=== PATIENT | female | born 1975 | race African-American/Black ===

== ENCOUNTER 2017-10-25 14:31 | Inpatient (IN) | payer SELFPAY ==
[2017-10-25 15:01] LABS: Hematocrit 23.1 % (36.0-47.0); Mean Platelet Volume 8.9 fL (7.4-10.4); Red Blood Cell (RBC) Count 3.42 mill/uL (4.20-5.40)
[2017-10-25 15:18] LABS: ALT (SGPT) 10 U/L (8-55); AST (SGOT) 15 U/L (5-34); Alkaline Phosphatase 68 U/L (40-150); Anion Gap 12 mmol/L (10-20); BUN (Urea Nitrogen) 10 mg/dL (7.0-18.7); Bilirubin, Total 0.2 mg/dL (0.2-1.2); CK (CPK) 139 U/L (29-168); Calc. Creatinine Clearance 0 mL/min (70-130); Calcium 9.1 mg/dL (7.8-10.44); Carbon Dioxide 23 mmol/L (22-29); Chloride 107 mmol/L (98-107); Estimated GFR-MDRD 88; Globulin 3.5 g/dL (2.4-3.5); Protein, Total 7.7 g/dL (6.0-8.3)
[2017-10-25 15:21] LABS: #Basophils 0.1 thou/uL (0.0-0.2); #Eosinphils 0.3 thou/uL (0.0-0.7); #Lymphocytes 1.1 thou/uL (1.20-3.40); #Monocytes 0.3 thou/uL (0.11-0.59); #Neutrophils 3.3 thou/uL (1.40-6.50); %Basophils 1.3 % (0.0-1.0); %Eosinophils 6.4 % (0.0-10.0); %Lymphocytes 21.7 % (21.0-51.0); %Monocytes 5.3 % (0.0-10.0); Anisocytosis SLIGHT = 6-15 cells (100X) (0-5/hpf); Hypochromia SLIGHT = 6-15 cells (100X) (0-5/hpf); Microcytosis SLIGHT = 6-15 cells (100X) (0-5/hpf)
[2017-10-25 15:23] LABS: Troponin I 0.035 ng/mL (< 0.028)
--- NOTE | 2017-10-25 15:44 | RAD ---
PORTABLE AP CHEST XRAY: DATE: 10/25/17. HISTORY: Syncopal episode. History of fainting due to iron deficiency. COMPARISON: 05/20/17. FINDINGS: Cardiac silhouette and pulmonary vasculature are within normal limits. The lungs remain clear. Ther e has been no interval change from prior study. IMPRESSION: No acute cardiopulmonary process. POS: [facility]
--- NOTE | 2017-10-25 17:47 | RAD ---
RIGHT HAND THREE VIEWS: 10/25/17 HISTORY: Right hand injury. FINDINGS: Overlying IV tubing obscures detail. Mild scattered osteophytosis is apparent. Joint spaces are prese rved. No acute fracture or dislocation are visible. IMPRESSION: Mild osteoarthritic changes of the right hand. POS: [facility]
--- NOTE | 2017-10-25 17:49 | RAD ---
FOUR VIEWS RIGHT KNEE 10/25/17 HISTORY: Injury after a fall. COMPARISON: 04/25/17 FINDINGS: Again noted is tricompartment osteophytosis. There may be minimal joint space narrowing involving the medial joint compartment. There is no evidence of a fracture or dislocation. Significant joint effus ion has resolved. There has been no other interval change from the prior exam. IMPRESSION: Osteoarthritis without evidence of an acute osseous abnormality involving the right knee. POS: [facility]
[2017-10-25] MEDS ORDERED: Ondansetron HCl/PF 4 MG/2 ML Vial IVP PRN (17:54)
[2017-10-25] MEDS ORDERED: Calcium Carbonate 500 MG ChewTAB PO PRN (17:54)
[2017-10-25] MEDS ORDERED: Acetaminophen 325 MG TAB PO PRN (17:54)
[2017-10-25] MEDS ORDERED: Bisacodyl 5 MG TAB PO PRN (17:54)
[2017-10-25] MEDS ORDERED: Mag-Al 1200 mg/1200 mg/30 ML UDCUP PO PRN (17:54)
[2017-10-25] MEDS ORDERED: Senokot 8.6 MG TAB PO PRN (17:54)
[2017-10-25 18:55] VITALS: BMI 37.8
[2017-10-25 19:18] LABS: Troponin I 0.036 ng/mL (< 0.028)
[2017-10-25 21:26] LABS: Troponin I 0.026 ng/mL (< 0.028)
--- NOTE | 2017-10-25 22:44 | HP ---
CHIEF COMPLAINT: Syncopal episode. HISTORY OF PRESENT ILLNESS: This is a 42-year-old female with a past medical history significant for hypertension as well as iron deficiency anemia who presents to the hospital due to syncopal episode that occurred early at home. The patient states that over the past couple of days she has noted that she is becoming worse and she has become more short of breath than she normally is. She was on her way going to the bathroom when she became dizzy and had a syncopal spell. No seizure activity was se en at the time. Syncopal episode had resolved after a couple of minutes and she was back to her base line. She did not complain of any other precipitating events or any pulse or any symptoms after the syncopal episode. She denies any chest pain, cough, fevers, chills, or palpitations. Of note, the p atient states that she has had a history of iron deficiency anemia in the past. She states that she is currently on her cycle and she states that her cycles are usually heavy in nature. PAST MEDICAL HISTORY: See HPI. PAST SURGICAL HISTORY: Includes tubal ligation as well as jaw surgery. FAMILY HISTORY: Significant for diabetes, hypertension, stroke, as well as coronary artery disease. SOCIAL HISTORY: Patient states that she is a former smoker, drinks occasionally and denies any recre ational drug use. REVIEW OF SYSTEMS: A 14-point review of systems was reviewed and was negative other than what was me ntioned in the HPI. PHYSICAL EXAMINATION: VITAL SIGNS: Blood pressure was 134/80, pulse was 67, respiratory rate was 16, temperature 98.8. Pa deriknt was satting 99% oxygen on room air. GENERAL: Patient was in no apparent distress, resting comfortably in the bed, alert, awake, oriented x3. HEENT: Head: Normocephalic, atraumatic. Eyes: Pupils are round and reactive to light. Extraocula r muscles were intact. Conjunctivae was pink. Sclerae was nonicteric. Mouth: Oral mucosa is pink and moist. No erythematous was noted. NECK: Soft, supple. No JVD, carotid bruits or lymphadenopathy. CARDIOVASCULAR: Regular rate and rhythm. S1, S2 sounds were heard. No S3, no S4, or murmurs. RESPIRATORY: Clear to auscultation bilaterally. No added sounds. ABDOMEN: Bowel sounds, soft, nontender, nondistended. EXTREMITIES: Pulses were 2+ both dorsalis and radial pulse. No pitting edema could be appreciated. LABORATORY DATA: White blood cell count was 5.0, hemoglobin 7.1, hematocrit was 23.1, MCV is 67.7. Sodium was 139, potassium 3.3, chloride is 107, bicarbonate is 23, BUN was 10, creatinine was 0.85. Troponin was 0.035. EKG did not show any acute abnormalities or ST changes and x-ray which was done after a fall, did not show any acute fractures or any acute abnormalities. ASSESSMENT AND PLAN: 1. Syncopal episode, likely secondary to symptomatic anemia, secondary to iron deficient anemia, sec ondary to heavy menstrual bleeding. Patient is currently hemodynamically stable. She has been typed and crossed and will receive 1 unit transfusion. We will start the patient on iron supplement table ts. We will educate the patient on importance of taking her tablets at home. She will follow up out patient with her [facility] doctor for any further interventions. We will check H&H in the a.m. 2. Mildly elevated troponin secondary to most likely demand ischemia from symptomatic anemia. No fu rther troponins are negative at this time, she is asymptomatic and without any cardiovascular symptom s at this time. So, we will just monitor for the time being. 3. Hypertension. We will resume home medication at the medicine reconciliation.
[2017-10-26 06:17] LABS: #Basophils 0.1 thou/uL (0.0-0.2); #Eosinphils 0.6 thou/uL (0.0-0.7); #Lymphocytes 1.3 thou/uL (1.20-3.40); #Monocytes 0.4 thou/uL (0.11-0.59); #Neutrophils 4.6 thou/uL (1.40-6.50); %Basophils 1.1 % (0.0-1.0); %Eosinophils 8.4 % (0.0-10.0); %Lymphocytes 18.4 % (21.0-51.0); %Monocytes 5.6 % (0.0-10.0); Hematocrit 23.9 % (36.0-47.0)
[2017-10-26 06:27] LABS: Anion Gap 9 mmol/L (10-20); BUN (Urea Nitrogen) 10 mg/dL (7.0-18.7); Calc. Creatinine Clearance 145 mL/min (70-130); Calcium 8.7 mg/dL (7.8-10.44); Carbon Dioxide 24 mmol/L (22-29); Chloride 110 mmol/L (98-107); Estimated GFR-MDRD Greater than 90
--- NOTE | 2017-10-26 11:08 | PDOC.PN ---
- Subjective Encounter Start Date: 10/26/17 Encounter Start Time: 07:20 Pt seen for followup re: syncope. Denies chest pain, shortness of breath, fevers or chills. No nausea or vomiting. Hilliard lightheaded earlier when she went up to go to washroom. - Objective MAR Reviewed: Yes Vital Signs & Weight: Vital Signs (12 hours) Temp Pulse Resp BP Pulse Ox 10/26/17 08:05 98.2 F 64 20 146/97 H 100 10/26/17 04:00 97.9 F 62 16 140/83 97 Weight Weight 220 lb I&O: 10/25/17 10/26/17 10/27/17 06:59 06:59 06:59 Intake Total 590 Balance 590 Result Diagrams: 10/26/17 05:38 10/26/17 05:38 EKG Reviewed by me: Yes (Tele: NSR) Phys Exam - Physical Examination Constitutional: NAD HEENT: PERRLA, moist MMs, sclera anicteric, oral pharynx no lesions Neck: supple Respiratory: no wheezing, no rales, no rhonchi, clear to auscultation bilateral Cardiovascular: RRR, no rub Gastrointestinal: soft, non-tender, no distention, positive bowel sounds Musculoskeletal: pulses present Neurological: non-focal, moves all 4 limbs Lymphatic: no nodes Psychiatric: normal affect, A&O x 3 Skin: no rash, normal turgor, cap refill <2 seconds Dx/Plan (1) Syncope Code(s): R55 - SYNCOPE AND COLLAPSE Status: Acute (2) Anemia, posthemorrhagic, acute Code(s): D62 - ACUTE POSTHEMORRHAGIC ANEMIA Status: Acute (3) HTN (hypertension) Code(s): I10 - ESSENTIAL (PRIMARY) HYPERTENSION Status: Chronic (4) Elevated troponin Code(s): R74.8 - ABNORMAL LEVELS OF OTHER SERUM ENZYMES Status: Resolved - Plan out of bed/ambulate, DVT proph w/SCDs * . Check 2D echo r/o cardiac causes of syncope. No chest pain, troponin trended to normal. Check d-dimer to r/o PE. Transfuse 1 unit pRBC (Hb only slightly improved, pt continues to be symptomatic ). Monitor vital signs, titrate antihypertensives as needed. Pt to followup with ObGyn as outpt. Review of Systems - Review of Systems Constitutional: negative: Fever, Chills, Sweats, Weakness, Malaise Respiratory: negative: Cough, Dry, Shortness of Breath, Hemoptysis, SOB with Excertion, Pleuritic Pain, Sputum, Wheezing Cardiovascular: negative: Chest Pain, Palpitations, Orthopnea, Paroxysmal Noc. Dyspnea, Edema, Light Headedness Gastrointestinal: negative: Nausea, Vomiting, Abdominal Pain, Diarrhea, Constipation, Melena, Hematochezia Genitourinary: negative: Dysuria, Frequency, Incontinence, Hematuria, Retention - Medications/Allergies Allergies/Adverse Reactions: Allergies Allergy/AdvReac Type Severity Reaction Status Date / Time No Known Allergies Allergy Verified 05/21/17 01:58 Medications: Current Medications Acetaminophen (Tylenol) 650 mg PO Q4H PRN PRN Reason: Headache/Fever or Pain Al Hydroxide/Mg Hydroxide (Maalox) 30 ml PO Q6H PRN PRN Reason: Heartburn or Indigestion Bisacodyl (Dulcolax) 10 mg PO DAILYPRN PRN PRN Reason: Constipation Calcium Carbonate (Tums) 1,000 mg PO Q4H PRN PRN Reason: Heartburn or Indigestion Ferrous Sulfate (Ferrous Sulfulte) 300 mg PO DAILY [facility] Last Admin: 10/26/17 08:47 Dose: 300 mg Ondansetron HCl (Zofran) 4 mg IVP Q6H PRN PRN Reason: Nausea/Vomiting Senna (Senokot) 2 tab PO HSPRN PRN PRN Reason: Constipation
[2017-10-27 05:39] LABS: Anion Gap 9 mmol/L (10-20); BUN (Urea Nitrogen) 13 mg/dL (7.0-18.7); Calc. Creatinine Clearance 132 mL/min (70-130); Calcium 9.1 mg/dL (7.8-10.44); Carbon Dioxide 26 mmol/L (22-29); Chloride 107 mmol/L (98-107); Estimated GFR-MDRD 87
[2017-10-27 05:44] LABS: #Basophils 0.1 thou/uL (0.0-0.2); #Eosinphils 0.7 thou/uL (0.0-0.7); #Lymphocytes 1.5 thou/uL (1.20-3.40); #Monocytes 0.4 thou/uL (0.11-0.59); #Neutrophils 4.6 thou/uL (1.40-6.50); %Eosinophils 9.3 % (0.0-10.0); %Lymphocytes 20.2 % (21.0-51.0); %Monocytes 5.6 % (0.0-10.0); Hematocrit 28.6 % (36.0-47.0); Mean Platelet Volume 8.2 fL (7.4-10.4); White Blood Cell (WBC) Count 7.2 thou/uL (4.8-10.8)
[2017-10-27] MEDS ORDERED: Iopamidol 370 76% 100 ML VIAL ONE (07:42)
[2017-10-27 11:40] VITALS: BP 132/73; TEMP 98.8
--- NOTE | 2017-10-27 15:12 | DIS ---
PRIMARY CARE PHYSICIAN: Criss Mendez M.D. DATE OF ADMISSION: 10/25/2017 DATE OF DISCHARGE: 10/27/2017 DISCHARGE DIAGNOSES: 1. Acute blood loss anemia. 2. Heavy menstrual bleeding. 3. Syncope. CONDITION OF PATIENT AT THE TIME OF DISCHARGE: Stable. I assessed Ms. Porras on the day of dischar . She denies any chest pain or shortness of breath. Vital signs are stable. S1 and S2 are heard, regular. Lungs are clear to auscultation bilaterally. DISCHARGE MEDICATIONS: No changes were made to her home medications, which consist of Tylenol No. 3 p.r.n., ProAir HFA p.r.n., ferrous sulfate 325 mg 2 times a day, hydrochlorothiazide 25 mg daily, ibu profen 800 mg 3 times a day, iron fumarate and polysaccharide 1 capsule daily, and lisinopril 20 mg d aily. HOSPITAL COURSE: Ms. Knight is a pleasant 42-year-old lady, who was admitted to [facility] for a syncopal episode, which occurred in the context of heavy menstrual bleeding. Lucia nguyen was also found to be anemic, with a hemoglobin of 7.1. She did not have any recurrence of syncopes . There were no arrhythmias on telemetry. She received 2 units of packed blood cells, with improvement of her hemoglobin to 8.9 on the day of discharge. Lucia nguyen had a 2D echocardiogram, which showed left ventricular ejection fraction of 60% to 65%, grade 2/3 d iastolic dysfunction, mildly dilated left atrium, mild mitral regurgitation, mild tricuspid regurgita tion, and mild pulmonic regurgitation. She also had a CT angiogram of the chest. Preliminary report indicates that there was no pulmonary embolism. She is advised to follow up with her primary care simeon barbour for final report of the CT angiogram of chest. Many thanks for allowing me to participate in your patient's care. Please feel free to contact me wi th any questions or concerns. DISCHARGE DESTINATION: Home. TOTAL AMOUNT OF TIME SPENT COORDINATING THIS DISCHARGE: 32 minutes.
--- NOTE | 2017-10-27 17:57 | CT ---
CT ARTERIOGRAM CHEST WITH IV CONTRAST AND 3D MIP IMAGING: History: Chest pain. Dyspnea. Comparison: 07-01-15 FINDINGS: There is good contrast opacification of the pulmonary arteries and thoracic aorta with bovine origin of the great vessels from the aortic arch. No pleural fluid, pneumothorax, or mediastinal adenopathy are apparent. IMPRESSION: No CT evidence of pulmonary embolus. POS: [facility]
== END 2017-10-27 15:55 | disposition home or self-care (01) | DRG 812 ==
LOC: ERS 14:31 → 2NO 18:01
PROVIDERS: ADMIT Family Medicine; ATTEND Family Medicine
PROC: 30233N1 Transfusion of Nonautologous Red Blood Cells into Peripheral Vein, Percutaneous Approach (ICD-10-PCS; principal; 2017-10-25)
DX: D62 Acute posthemorrhagic anemia (principal); I24.8 Other forms of acute ischemic heart disease; I10 Essential (primary) hypertension; N92.0 Excessive and frequent menstruation with regular cycle; E11.9 Type 2 diabetes mellitus without complications; Z87.891 Personal history of nicotine dependence; Z82.3 Family history of stroke; Z82.49 Family history of ischemic heart disease and other diseases of the circulatory system; Z83.3 Family history of diabetes mellitus
CPT/HCPCS: 36415; 36430; 71010; 71275; 80048; 80053; 82553; 83735; 83880; 84484; 84703; 85025; 85379; 86850; 86900; 86901; 93005; 93306; 94760; 96360; P9016

== ENCOUNTER 2017-11-12 12:11 | Outpatient (CLI) | payer OTHER | END 2017-11-12 12:12 | disposition home or self-care (01) | LOC: BICRAD 12:11 | PROVIDERS: ATTEND Internal Medicine | DX: Z02.71 Encounter for disability determination (principal); M65.262 Calcific tendinitis, left lower leg | CPT/HCPCS: 71020 ==

== ENCOUNTER 2018-08-04 21:08 | Emergency (ER) | payer MEDICAID, SELFPAY ==
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
[2018-08-04] MEDS ORDERED: HYDROcodone/Acetaminophen 10/325 mg Tablet ONE (22:59)
== END 2018-08-04 23:09 | disposition home or self-care (01) ==
LOC: ERS 21:08
DX: S16.1XXA Strain of muscle, fascia and tendon at neck level, initial encounter (principal); S20.219A Contusion of unspecified front wall of thorax, initial encounter; I10 Essential (primary) hypertension; J45.909 Unspecified asthma, uncomplicated; I11.0 Hypertensive heart disease with heart failure; I50.9 Heart failure, unspecified; J44.9 Chronic obstructive pulmonary disease, unspecified; F32.9 Major depressive disorder, single episode, unspecified; Z87.891 Personal history of nicotine dependence; Z79.899 Other long term (current) drug therapy; V49.9XXA Car occupant (driver) (passenger) injured in unspecified traffic accident, initial encounter
CPT/HCPCS: 72125

== ENCOUNTER 2018-12-29 19:00 | Emergency (ER) | payer SELFPAY ==
[~2018-12-29 19:00] MED LIST: ISOVUE-370 76%-LOCM 1 ML ONE
[2018-12-29 20:11] LABS: #Basophils 0.1 thou/uL (0.0-0.2); #Eosinphils 0.5 thou/uL (0.0-0.7); #Lymphocytes 1.1 thou/uL (1.20-3.40); #Monocytes 0.4 thou/uL (0.11-0.59); #Neutrophils 3.9 thou/uL (1.40-6.50); %Basophils 1.3 % (0.0-1.0); %Eosinophils 8.9 % (0.0-10.0); %Lymphocytes 19.1 % (21.0-51.0); %Monocytes 6.1 % (0.0-10.0); %Neutrophils 64.6 % (42.0-75.0); Hemoglobin 10.5 g/dL (12.0-16.0); Mean Corpuscular HGB CONC 32.2 g/dL (32.0-36.0); Mean Corpuscular Hemoglobin 26.9 pg (27.0-31.0); Mean Corpuscular Volume 83.6 fL (78.0-98.0); Mean Platelet Volume 9.1 fL (7.4-10.4); Platelet Count 267 thou/uL (130-400); RBC Distribution Width 14.5 % (11.5-14.5); Red Blood Cell (RBC) Count 3.88 mill/uL (4.20-5.40)
[2018-12-29 20:32] LABS: ALT (SGPT) 17 U/L (8-55); AST (SGOT) 26 U/L (5-34); Albumin 4.8 g/dL (3.5-5.0); Alkaline Phosphatase 67 U/L (40-150); Anion Gap 11 mmol/L (10-20); BUN (Urea Nitrogen) 11 mg/dL (7.0-18.7); Bilirubin, Total 0.2 mg/dL (0.2-1.2); Calc. Creatinine Clearance 0 mL/min (70-130); Calcium 10.1 mg/dL (7.8-10.44); Carbon Dioxide 27 mmol/L (22-29); Chloride 103 mmol/L (98-107); Estimated GFR-MDRD 64; Globulin 3.7 g/dL (2.4-3.5); Glucose 91 mg/dL (70-105); Potassium 3.3 mmol/L (3.5-5.1); Protein, Total 8.5 g/dL (6.0-8.3); Sodium 138 mmol/L (136-145)
--- NOTE | 2018-12-29 20:42 | RAD ---
FRONTAL VIEW CHEST: Date: 12/29/18 COMPARISON: 10/25/17. INDICATION: Shortness of breath. FINDINGS: There is no evidence of consolidation, effusion, or discrete pneumothorax. Cardiac silhouette is acce ntuated by portable technique. IMPRESSION: Stable chest. POS: [facility]
[2018-12-29] MEDS ORDERED: Ondansetron PF 4 MG/2 ML Vial ONE (20:43)
--- NOTE | 2018-12-29 21:26 | CT ---
POSTCONTRAST SOFT TISSUE NECK CT 12/29/18 HISTORY: Foreign body sensation, difficulty breathing. Patient feels like her throat is going to close up. COMPARISON: None. FINDINGS: The visualized brain parenchyma is unremarkable. There is mucosal disease involving the ethmoid air c ells and right frontal sinus. Additionally, there is mild mucosal disease of the maxillary sinuses. A dequate mastoid air cell aeration. Bilateral ocular lenses are appropriately located. Both globes are intact. Retrobulbar fat is preserv ed. Symmetric attenuation of the optic nerves and ocular rectus muscles. Limited evaluation of the or al cavity due to dental amalgam artifact. Midline fatty raphae of the tongue is preserved. No obvious masses in the nasopharynx. Epiglottis has a normal caliber. Pre-epiglottic fat is preserved. There i s mild fullness at the tongue base likely due to mild lingual tonsil hypertrophy. No obvious masses. there is mild obscuration of the left aspect of the vallecula. Mild effacement of the left piriform s inus. Directed visualization is recommended. The supraglottic, glottic and subglottic larynx are unre markable. Symmetric attenuation of sternocleidomastoid muscles. Symmetric attenuation of the parotid and submandibular glands. Unremarkable. thyroid gland. No evidence of lymphadenopathy by size criteria. The great vessels of the neck are grossly patent. Straightening of the normal cervical lordosis. Cervical spine vertebral body height is maintained. Th ere is no fracture. Varying degrees of central canal stenosis and foraminal narrowing on the basis of degenerative change. Upper mediastinum and lung apices are unremarkable. IMPRESSION: 1. No obvious radiopaque foreign body in the aerodigestive tract. 2. Mild fullness of the tongue base, left aspect of the vallecula and left piriform sinus. Findi ngs may be due to minimal lymphoid hyperplasia and benign apposition of mucosa. However, given patien t's history, direct visualization is recommended. POS: [facility]
[2018-12-29] MEDS ORDERED: Dexamethasone 4 mg/ml Vial ONE (22:10)
--- NOTE | 2018-12-30 03:28 | CON ---
DATE OF CONSULTATION: 12/29/2018 CHIEF COMPLAINT: I am seeing Ms. Porras in consultation at the request of Dr. Wood in the emergency department for the evaluation and treatment of airway swelling. HISTORY OF PRESENT ILLNESS: The patient is a 43-year-old woman who presented to the emergency department after feeling a sensation of airway closing and swelling. She never had any distress or loss of consciousness. This occurred right after she had eaten a meal. She was brought to the emergency department where subsequently after evaluation had a CT scan of the neck which showed some soft tissue swelling that was concerning for airway obstruction and was recommended the patient to have an endoscopic evaluation to evaluate the airway. The patient is not complaining of any acute distress, but does feel like there is an irritation in her throat and a little bit of tightness. She never had a similar problem previously. She is unaware of any history of significant reflux. She does complain of a little bit of hoarseness. She also complains of frequent sinus infections and nasal congestion. She does not take medications regularly for her reflux but she does take medicine for blood pressure that includes an ANYI inhibitor. PAST MEDICAL HISTORY: Hypertension and obesity. SOCIAL HISTORY: She does have remote history of smoking. HABITS: Currently, tobacco free. REVIEW OF SYSTEMS: The patient has no recent fever or chills. Again, she does have some nasal congestion and postnasal drainage, but not epistaxis. She denies vision changes. She denies ear pain or otorrhea or vertigo, although she does get lightheaded at times. She denies any chest pain or palpitations. She denies any chronic productive cough or shortness of breath. She denies extremity edema or claudication. She denies any vomiting or diarrhea. She does have occasional reflux but no significant problems. She denies any problems with easy bruising or bleeding. She denies any history of immunocompromise. PHYSICAL EXAMINATION: GENERAL: The patient is resting comfortably in the emergency department. In general, the patient is in no acute distress and in good spirits and interactive appropriately. VITAL SIGNS: Her O2 sats on room air are 98%. Her pulse was 92. HEENT: Head is normocephalic. The parotid and submandibular glands are smooth. There is normal facial tone. External ears and nose show no scars and no masses. Ear canals are clear. Drums are within normal limits with well-aerated middle ear spaces and she has a good hearing to finger rub bilaterally. Rhinoscopy showed the septum is deviated to the right. On flexible endoscopy, she is noted to have some purulent secretions emanating from the middle meatus on the left side. There are no polyps noted on either sides. Nasopharynx shows that posterior choana clear. The fossa of Rosenmuller and torus tubarius are clear. The mucosa is otherwise unremarkable. Oral cavity, lips, teeth, and gums were in good repair. There is no trismus. Mucosa is pink and moist throughout. Floor of mouth, oral tongue, buccal mucosa are all normal. Hard and soft palate are normal. Posterior oropharynx reveals pink, moist mucosa without exudates or mass. The airway is widely patent. The hypopharynx and larynx were examined with flexible endoscope. The hypopharynx shows clean pharyngeal gutters. The vallecula does have a little bit of full lingual tonsil but nothing of significant abnormalities. The vallecula is clear. The pyriform sinuses are completely clear. The larynx shows that the epiglottis, false cords, and true cords are all normal. The vocal cords are mobile and meet in midline. She does have a little bit of pachydermia laryngis. Subglottic space is completely clear. NECK: No mass or thyromegaly. Trachea is midline. LYMPHATIC: No cervical lymphadenopathy. LUNGS: Clear to auscultation bilaterally. HEART: Regular rate and rhythm. DIAGNOSTIC STUDIES: Data reviewed the CT scan of the soft tissues in the neck. I do not really appreciate any significant edema or swelling. The airway does appear to be patent. I see no fluid collections or masses. IMPRESSION: 1. Laryngeal irritation, may be a little laryngospasm. I think it is probably related to reflux episode. 2. Left maxillary sinusitis. 3. Deviated septum. PLAN: I recommended that the patient will be treated with proton-pump inhibitor and antibiotic coverage for the reflux and the sinus infection, and she should follow up with primary care provider to review this at some point in the near future. I feel that her airway is stable and without compromise and assuming other issues are not a concern, she is free to be discharged to home as far as my evaluation. Job ID: [id number]
== END 2018-12-29 22:20 | disposition home or self-care (01) ==
LOC: ERS 19:00
DX: J32.9 Chronic sinusitis, unspecified (principal); I10 Essential (primary) hypertension; J44.9 Chronic obstructive pulmonary disease, unspecified; Z87.891 Personal history of nicotine dependence; Z79.899 Other long term (current) drug therapy
CPT/HCPCS: 36415; 70491; 71045; 80053; 83880; 84484; 85025; 85379; 93005; 96374; J1100; J2405; Q9966

== ENCOUNTER 2019-04-19 15:09 | Emergency (ER) | payer SELFPAY ==
[2019-04-19] MEDS ORDERED: Ketorolac Tromethamine 60 MG/2 ML VIAL ONE (15:35)
== END 2019-04-19 16:46 | disposition home or self-care (01) ==
LOC: ERS 15:09
DX: M79.604 Pain in right leg (principal); M79.605 Pain in left leg; D50.9 Iron deficiency anemia, unspecified; I11.0 Hypertensive heart disease with heart failure; I50.9 Heart failure, unspecified; J44.9 Chronic obstructive pulmonary disease, unspecified; F32.9 Major depressive disorder, single episode, unspecified; F17.210 Nicotine dependence, cigarettes, uncomplicated; Z79.899 Other long term (current) drug therapy
CPT/HCPCS: 96372; J1885

== ENCOUNTER 2019-05-17 23:23 | Emergency (ER) | payer SELFPAY ==
--- NOTE | 2019-05-18 00:13 | RAD ---
XR Knee Rt 4 View STANDARD HISTORY: Knee pain COMPARISON: 04/25/2017 study. FINDINGS: There are moderate tricompartment arthritic changes of the knee. No fracture or joint effus ion. Benign-appearing periosteal change is again noted along the tibia. IMPRESSION: Moderate arthritic changes of the knee. No acute process.
== END 2019-05-18 00:42 | disposition home or self-care (01) ==
LOC: ERS 23:23
DX: M25.561 Pain in right knee (principal); D50.9 Iron deficiency anemia, unspecified; I11.0 Hypertensive heart disease with heart failure; I50.9 Heart failure, unspecified; J44.9 Chronic obstructive pulmonary disease, unspecified; F32.9 Major depressive disorder, single episode, unspecified; F17.210 Nicotine dependence, cigarettes, uncomplicated; Z79.899 Other long term (current) drug therapy

== ENCOUNTER 2019-06-18 13:16 | Emergency (ER) | payer OTHER, SELFPAY ==
[2019-06-18] MEDS ORDERED: Ketorolac Tromethamine 30 MG/ML VIAL ONE (14:00)
--- NOTE | 2019-06-18 14:52 | RAD ---
XR Knee Rt 4 View STANDARD HISTORY: Knee pain. Injured knee approximately 3 weeks ago. COMPARISON: None. FINDINGS: There are moderate arthritic changes of the knee degenerative spurring of the medial and to a lesser extent the lateral compartment and prominent patellofemoral spur formation. No joint effusion or fracture. IMPRESSION: Moderate osteoarthritic changes of the knee.
== END 2019-06-18 15:24 | disposition home or self-care (01) ==
LOC: ERS 13:16
DX: M17.11 Unilateral primary osteoarthritis, right knee (principal); I11.0 Hypertensive heart disease with heart failure; I50.9 Heart failure, unspecified; D50.9 Iron deficiency anemia, unspecified; J44.9 Chronic obstructive pulmonary disease, unspecified; F32.9 Major depressive disorder, single episode, unspecified; F17.210 Nicotine dependence, cigarettes, uncomplicated
CPT/HCPCS: 96372; J1885

== ENCOUNTER 2019-11-10 01:05 | Emergency (ER) | payer OTHER ==
[2019-11-10] MEDS ORDERED: Diazepam 5 MG TAB ONE (01:19)
== END 2019-11-10 01:27 | disposition home or self-care (01) ==
LOC: ERS 01:05
DX: M62.838 Other muscle spasm (principal); I11.0 Hypertensive heart disease with heart failure; I50.9 Heart failure, unspecified; J44.9 Chronic obstructive pulmonary disease, unspecified; F32.9 Major depressive disorder, single episode, unspecified; F17.210 Nicotine dependence, cigarettes, uncomplicated
CPT/HCPCS: 99283

== ENCOUNTER 2020-01-22 10:29 | Observation (INO) | payer OTHER, SELFPAY ==
[2020-01-22] MEDS ORDERED: Metoclopramide HCl 10 MG/2 ML VIAL ONE (11:01)
[2020-01-22] MEDS ORDERED: diphenhydrAMINE 50 MG/ML VIAL ONE (11:01)
[2020-01-22] MEDS ORDERED: Ketorolac Tromethamine 30 MG/ML VIAL ONE (11:01)
--- NOTE | 2020-01-22 11:39 | RAD ---
EXAM: Chest one view: HISTORY: Headaches body aches leg cramps dizziness COMPARISON: 12/29/2018 FINDINGS: Heart size: Within normal limits. Lungs: Clear of acute process. No evidence for confluent pneumonia, pleural effusion, acute edema, or pneumothorax, or other signifi cant acute process. IMPRESSION: No significant acute intrathoracic disease.
[2020-01-22 11:45] LABS: INR-International Normal Ratio 1.1; PTT 30.5 SEC (22.9-36.1); Prothrombin Time 13.7 SEC (12.0-14.7)
[2020-01-22 11:57] LABS: ALT (SGPT) 23 U/L (8-55); AST (SGOT) 29 U/L (5-34); Albumin 4.2 g/dL (3.5-5.0); Alkaline Phosphatase 77 U/L (40-110); Anion Gap 14 mmol/L (10-20); BUN (Urea Nitrogen) 11 mg/dL (7.0-18.7); Bilirubin, Total 0.2 mg/dL (0.2-1.2); Calc. Creatinine Clearance 0 mL/min (70-130); Calcium 8.6 mg/dL (7.8-10.44); Carbon Dioxide 23 mmol/L (22-29); Chloride 108 mmol/L (98-107); Estimated GFR-MDRD Greater than 90; Globulin 3.3 g/dL (2.4-3.5); Glucose 83 mg/dL (70-105); Potassium 4.5 mmol/L (3.5-5.1); Protein, Total 7.5 g/dL (6.0-8.3); Sodium 140 mmol/L (136-145)
[2020-01-22 12:00] LABS: Eosinophils 10 % (0-10); Hemoglobin 6.9 g/dL (12.0-16.0); Hypochromia MODERATE=16-30 cells (100X) (0-5/hpf); Large Platelets SLIGHT; Lymphocytes 22 % (21-51); MDiff Complete? YES; Mean Corpuscular HGB CONC 29.8 g/dL (32.0-36.0); Mean Corpuscular Hemoglobin 18.5 pg (27.0-31.0); Mean Corpuscular Volume 62.1 fL (78.0-98.0); Mean Platelet Volume 8.4 fL (7.4-10.4); Microcytosis MODERATE=15-30 cells (100X) (0-5/hpf); Monocytes 6 % (0-10); Neutrophil 61 % (42-75); Platelet Count 362 thou/uL (130-400); Platelet Morphology Comment Appears Adequate; RBC Distribution Width 20.9 % (11.5-14.5); Red Blood Cell (RBC) Count 3.71 mill/uL (4.20-5.40); White Blood Cell (WBC) Count 7.1 thou/uL (4.8-10.8)
[2020-01-22] MEDS ORDERED: Tranexamic Acid 1,000 MG in Sodium Chloride 0.9% 100 ML IVPB SCH (14:00)
--- NOTE | 2020-01-22 14:08 | ULT ---
Exam: Pelvic ultrasound including transabdominal, transvaginal, and vascular duplex with color and spectral Doppler imaging: HISTORY: Patient states that she has a tumor in her uterus. The uterus measures 14.3 x 7.3 x 9.1 cm. There is at least one large intrauterine fibroid measuring 5 .0 x 5.4 x 4.8 cm. The right ovary measures 1.9 x 2.0 x 3.7 cm and contains a cyst measuring 1.9 x 3.5 cm. No abscess or abnormal fluid collection. The uterus does appear to be enlarged when compared to 04/04/2016 study. IMPRESSION: Large uterus with at least one large intrauterine fibroid. Right ovarian cyst as above. Nonvisualized left ovary.
[2020-01-22] MEDS ORDERED: Ondansetron PF 4 MG/2 ML Vial IVP PRN (16:12)
[2020-01-22] MEDS ORDERED: Ondansetron ODT 4 MG TAB SL PRN (16:12)
[2020-01-22] MEDS ORDERED: Acetaminophen 325 MG TAB PO PRN (16:12)
[2020-01-22 16:51] VITALS: BMI 35.0
[2020-01-22] MEDS ORDERED: Lisinopril 10 MG TAB PO SCH (17:15)
--- NOTE | 2020-01-22 19:00 | HP ---
CHIEF COMPLAINT: Feeling tired all the time and being short of breath on exertion. HISTORY OF PRESENT ILLNESS: The patient is a 44-year-old female, who is admitted to the hospital with prolonged history of a hypermenorrhea. She stated that each time she has had monthly amenorrhea, it is very severe and she bleeds for approximately 5 days, but it is very heavy. Since lack of finances, she does not really go to the doctor looking for any help. She quit taking her home medications she was supposed to take for her blood pressure several months ago. She is taking only [id number] Aleve and some Tylenol. She complains also about some abdominal cramps, leg cramps and hand cramps. Her appetite is fair. She moves her bowels every day. She denies any chest pain or heart palpitations. No nausea. No vomiting. PAST MEDICAL HISTORY: 1. Anemia. 2. Hypertension. 3. Hyperlipidemia. PAST SURGICAL HISTORY: 1. Jaw surgery. 2. Tubal ligation. MEDICATIONS: Only [id number] Tylenol and Aleve. ALLERGIES: NONE. FAMILY HISTORY: Father had heart problem and in his 60s. Mother is still alive. She has hypertension. SOCIAL HISTORY: She smokes on and off few cigarettes per day. She does not drink alcohol. She does not use any illicit drugs. REVIEW OF SYSTEMS: All 14 systems were reviewed and only symptoms mentioned in HPI are positive, the rest are negative. PHYSICAL EXAMINATION: GENERAL: She is not in any distress at the time of my visit. VITAL SIGNS: Blood pressure is 137/70, pulse is 82, respiratory rate is 18. She is afebrile. HEENT: Head is atraumatic, normocephalic. Eyes are PERRLA. Sclerae are nonicteric. Conjunctivae are palish. Oral mucosa is moist. NECK: Supple. LUNGS: Clear. HEART: S1, S2 normal. No S3. No S4. No any murmur. ABDOMEN: Soft, nontender, nondistended. EXTREMITIES: No clubbing, cyanosis, or edema. NEUROLOGIC: She is alert and oriented x4. There is no any motor or sensory deficits present. Cranial nerves are intact. LABORATORY DATA: Labs showed white count of 7.1, hemoglobin 6.9, hematocrit 23.0, platelet count is 362, RDW 20.9, MCV 62.1. Sodium of 140, potassium 4.5, chloride 108, CO2 of 23, BUN 11, creatinine 0.77. The rest of chemistry is within normal limits. IMAGING STUDIES: 1. Chest x-ray personally reviewed by me showed no significant acute intrathoracic disease. 2. Ultrasound of the pelvis showed large uterus with at least one large intrauterine fibroid and right ovarian cyst measuring 1.9 x 3.5 cm. 3. The left ovary was not visualized on ultrasound. Vaginal examination with swab was negative for Trichomonas, Gardnerella and Soledad. IMPRESSION: 1. Severe symptomatic anemia most likely secondary to hypermenorrhea. 2. Uterine fibroids most likely multiple, is possible cause of her uterine bleeding. 3. Hypertension per history. 4. Hyperlipidemia. PLAN: Full admission. Condition, fair. Activity, bedrest and bathroom privileges. IV Hep-Lock. Transfusion of 1 unit of packed red blood cells. Gynecology consultation. Tranexamic acid 1000 mg IV piggyback x1. SCDs for DVT prophylaxis. CBC in the morning. Job ID: [id number]
--- NOTE | 2020-01-22 19:54 | PDOC.FPROB ---
FMR OB H&P: HPI - History of Present Illness Chief Complaint: heavy periods, foul smelling discharge History of Present Illness: 44 yo f admitted to medicine for sx anemia 2/2 AUB requiring one unit of prbcs. She has a hx of heavy periods and a large uterine fibroid seen on ultrasound as well as a 6cm right ovarian cyst. We were consulted for manufactured buildings supervisor management of her AUB. She presented to the ER with a cc initially of heavy periods with foul smelling discharge that started 2 days ago. She stated that she has a period every month , and her period lasts for 7+ days. FMR OB H&P: History - Past Medical History PMH: CHF, Anemia, HTN, HLD, COPD - OB History OB History: hx of three SVDs uterine fibroid right ovarian cyst - Surgical History Sx History: BTL, jaw surgery - Social History Social History: denies - Family History Family History: denies FMR OB H&P: Medications - Current Home Medications: Medication Instructions Recorded Confirmed Type Hydrochlorothiazide 25 mg PO QAM 05/21/17 01/22/20 History Iron Fum&Polysac#1/FA/MV No.18 1 cap PO DAILY 05/21/17 01/22/20 History [Tandem Plus] Lisinopril 20 mg PO DAILY 05/21/17 01/22/20 History Albuterol Sulfate [Proair HFA] 2 puff INH Q4HR PRN #1 inh 05/22/17 01/22/20 Rx Ferrous Sulfate [Feosol] 325 mg PO BID 10/26/17 01/22/20 History Allergies/Adverse Reactions: Allergies Allergy/AdvReac Type Severity Reaction Status Date / Time No Known Allergies Allergy Verified 01/22/20 17:02 FMR OB H&P: ROS - Review of Systems General: denies: fever/chills, weight/appetite/sleep changes ENT: denies: nasal congestion, rhinorrhea Cardiovascular: denies: chest pain, palpitation, edema Respiratory: reports: shortness of breath. denies: cough, congestion Gastrointestinal: reports: nausea. denies: vomiting Genitourinary (Female): reports: vaginal discharge, vaginal bleeding. denies: dysuria Neurologic: denies: numbness, syncope Integumentary: denies: itching, rash Hematologic/Lymphatic: reports: prolonged or excessive bleeding (vaginal bleeding) Psychological: denies: depression, anxiety FMR OB H&P: Vital Signs - Maternal Vital signs: Vital Signs - First Documented Temp Pulse Resp BP Pulse Ox 97.8 F 82 18 160/85 H 100 01/22/20 16:00 01/22/20 16:00 01/22/20 16:00 01/22/20 16:00 01/22/20 16:00 FMR OB H&P: Physical Exam - Physical Exam General: NAD, awake, alert and oriented HEENT: normocephalic and atraumatic, EOMI, conjunctiva clear, grossly normal vision Neck: trachea midline Heart: RRR General: no respiratory distress, good air movement Abdomen: soft Skin: no rash, capillary refill <2 seconds Lymphatic: no unusual bruising or bleeding, no purpura, no petechia - Pelvic Exam Vulva: normal hair distribution, no masses, no lesions, no discharge Deviation from normal: blood in vaginal vault SVE: no cervical motion tenderness, normal appering cervix FMR OB H&P: Results - Labs Lab results: Laboratory Results - last 24 hr 01/22/20 01/22/20 01/22/20 11:06 11:06 11:06 WBC 7.1 RBC 3.71 L Hgb 6.9 L Hct 23.0 L MCV 62.1 L MCH 18.5 L MCHC 29.8 L RDW 20.9 H Plt Count 362 MPV 8.4 Neutrophils % (Manual) 61 Lymphocytes % (Manual) 22 Monocytes % (Manual) 6 Eosinophils % (Manual) 10 Basophils % (Manual) 1 Hypochromia MODERATE=16-30 cells H Large Platelets SLIGHT Plt Morphology Comment Appears Adequate Microcytosis MODERATE=15-30 cells H PT 13.7 INR 1.1 APTT 30.5 Sodium 140 Potassium 4.5 Chloride 108 H Carbon Dioxide 23 Anion Gap 14 BUN 11 Creatinine 0.77 Estimated GFR (MDRD) Greater than 90 Glucose 83 Calcium 8.6 Total Bilirubin 0.2 AST 29 ALT 23 Alkaline Phosphatase 77 Troponin I Serum Total Protein 7.5 Albumin 4.2 Globulin 3.3 Albumin/Globulin Ratio 1.3 Blood Type Antibody Screen Crossmatch 01/22/20 01/22/20 11:06 13:02 WBC RBC Hgb Hct MCV MCH MCHC RDW Plt Count MPV Neutrophils % (Manual) Lymphocytes % (Manual) Monocytes % (Manual) Eosinophils % (Manual) Basophils % (Manual) Hypochromia Large Platelets Plt Morphology Comment Microcytosis PT INR APTT Sodium Potassium Chloride Carbon Dioxide Anion Gap BUN Creatinine Estimated GFR (MDRD) Glucose Calcium Total Bilirubin AST ALT Alkaline Phosphatase Troponin I 0.015 Serum Total Protein Albumin Globulin Albumin/Globulin Ratio Blood Type B POSITIVE Antibody Screen NEGATIVE Crossmatch See Detail Laboratory Tests 01/22/20 11:06 Hgb 6.9 L Hct 23.0 L - Imaging Imaging: uterine fibroid right ovarian cyst FMR OB H&P: A/P - Problem List (1) Abnormal uterine bleeding Current Visit: Yes Status: Acute Code(s): N93.9 - ABNORMAL UTERINE AND VAGINAL BLEEDING, UNSPECIFIED (2) Symptomatic anemia Current Visit: Yes Status: Acute Code(s): D64.9 - ANEMIA, UNSPECIFIED Discussion: Date/Time: 01/22/20 985 1. AUB-2/2 uterine fibroid-will start pt on provera and tx for ten days, will continue txa while in the hospital and recommend follow-up with manufactured buildings supervisor in one week 2. Symptomatc Anemia- s/p 1 unit of prbcs, would recheck recheck in the am. Recommend iron po bid. 3. Foul smelling discharge-VP3, gonorrhea/chlamydia pending, speculum exam showed a normal appearing cervix with blood in the vaginal vault. This H&P was discussed with Dr. Laughlin who agrees with the above assessment and plan. Addendum - Attending - Attending Attestation Date/Time: 01/22/20 8969 I personally evaluated the patient and discussed the management with Dr. Lowe. Asked to consult on this 44 yo BF admitted with anemia and h/o menorrhagia. USG shows fibroid. Pelvic exam confirms. Has had 1 unit PRBC. Lysteda and Provera ordered. Script for Provera on chart. Needs f/u at [facility] after discharge home. I agree with the History, Examination, Assessment and Plan documented above with any addition or exceptions noted.
[2020-01-22] MEDS: medroxyPROGESTERone Acetate 5 MG TAB PO SCH (21:30)
[2020-01-23 06:11] LABS: #Basophils 0.1 thou/uL (0.0-0.2); #Eosinphils 0.5 thou/uL (0.0-0.7); #Lymphocytes 1.4 thou/uL (1.20-3.40); #Monocytes 0.5 thou/uL (0.11-0.59); #Neutrophils 5.7 thou/uL (1.40-6.50); %Eosinophils 5.9 % (0.0-10.0); %Lymphocytes 17.4 % (21.0-51.0); %Monocytes 6.5 % (0.0-10.0); %Neutrophils 69.2 % (42.0-75.0); Elliptocytes SLIGHT = 2-5 cells (100X) (0-1/hpf); Hemoglobin 6.9 g/dL (12.0-16.0); Hypochromia SLIGHT = 6-15 cells (100X) (0-5/hpf); MDiff Complete? YES; Mean Corpuscular HGB CONC 30.6 g/dL (32.0-36.0); Mean Corpuscular Hemoglobin 20.2 pg (27.0-31.0); Mean Corpuscular Volume 66.1 fL (78.0-98.0); Mean Platelet Volume 8.9 fL (7.4-10.4); Platelet Count 335 thou/uL (130-400); Platelet Morphology Comment Appears Adequate; RBC Distribution Width 24.4 % (11.5-14.5); White Blood Cell (WBC) Count 8.3 thou/uL (4.8-10.8)
[2020-01-23] MEDS: Tranexamic Acid 650 MG TAB PO SCH ×2 (08:28→16:37)
[2020-01-23] MEDS: medroxyPROGESTERone Acetate 5 MG TAB PO SCH (08:28)
[2020-01-23] MEDS ORDERED: Lisinopril 10 MG TAB PO SCH (09:00)
[2020-01-23] MEDS ORDERED: FLU VACC QS2019-20(6MOS UP)/PF 60 MCG/0.5 ML SYRINGE IM ONE (09:00)
--- NOTE | 2020-01-23 09:00 | PRG ---
DATE OF SERVICE: 01/23/2020 This is a patient in bed 4433. This is an POACHER WRINGER OPERATOR consult followup. COURSE: I have seen the patient this morning along with Dr. Shagufta Forbes at bedside and Gautam Siegel (M3). The patient is in no acute distress and looks well. This patient was admitted yesterday to Internal Medicine for symptomatic anemia. The workup from gynecology revealed an intracavitary fibroid and a hemoglobin of around 6. She has received 1 unit of packed red blood cells and the second unit is pending and we are confirming that an order has been placed for that. If there is no order, we will place the order for this patient, as she is 44 yo and needs Hgb support. I discussed with her Provera oral medication and Lysteda for control of her HMB. I discussed the case with Dr. Laughlin, and we feel that we will continue Provera for about 14 days total, which she can do as an outpatient. Lysteda or tranexamic acid is for 3-5 days. The patient does not have a history of DVT and she has sporadic smoking history, which does not interfere with her oral Provera recommendation. Plan communicated by Spencer to IM physician. ASSESSMENT and PLAN: 1. Heavy menstrual bleeding secondary to leiomyomata. 2. Symptomatic anemia from heavy menstrual bleeding from leiomyomata, present on admission. 3. Status post 1 unit packed red blood cells, pending the second. 4. We will effectively sign off at this point. The patient will need outpatient gynecology follow up with any POACHER WRINGER OPERATOR provider. I did discuss with her that the treatment for this is surgical removal of the uterus to control her heavy menstrual bleeding. The patient is aware. Again, Lysteda should continue for 3-5 days and then Provera for 2 weeks. Needs Cold Working Supervisor outpatient follow up. Signing off for now. Thank you. Job ID: [id number] [facility] CENTERJameson
[2020-01-23 12:53] VITALS: BP 153/91; TEMP 98.2
[2020-01-23 14:43] LABS: #Basophils 0.1 thou/uL (0.0-0.2); #Eosinphils 0.5 thou/uL (0.0-0.7); #Lymphocytes 1.2 thou/uL (1.20-3.40); #Monocytes 0.4 thou/uL (0.11-0.59); #Neutrophils 5.9 thou/uL (1.40-6.50); %Basophils 1.5 % (0.0-1.0); %Eosinophils 5.8 % (0.0-10.0); %Lymphocytes 15.2 % (21.0-51.0); %Monocytes 4.8 % (0.0-10.0); %Neutrophils 72.7 % (42.0-75.0); Hemoglobin 8.3 g/dL (12.0-16.0); Mean Corpuscular HGB CONC 30.9 g/dL (32.0-36.0); Mean Corpuscular Hemoglobin 21.4 pg (27.0-31.0); Mean Corpuscular Volume 69.1 fL (78.0-98.0); Mean Platelet Volume 7.8 fL (7.4-10.4); Platelet Count 313 thou/uL (130-400); RBC Distribution Width 25.1 % (11.5-14.5); White Blood Cell (WBC) Count 8.1 thou/uL (4.8-10.8)
[2020-01-23 14:57] LABS: Anisocytosis MODERATE=16-30 cells (100X) (0-5/hpf); Hypochromia SLIGHT = 6-15 cells (100X) (0-5/hpf); Large Platelets SLIGHT; MDiff Complete? YES; Microcytosis SLIGHT = 6-15 cells (100X) (0-5/hpf); Ovalocytes SLIGHT = 2-5 cells (100X) (0-1/hpf); Platelet Morphology Comment Appears Adequate; Polychromasia SLIGHT = 2-3 cells (100X) (0-2/hpf); Schistocytes SLIGHT = 2-5 cells (100X) (0-1/hpf); Spherocytes SLIGHT = 1-5 cells (100X) (None Seen); Tear Drops SLIGHT = 2-5 cells (100X) (0-1/hpf)
--- NOTE | 2020-01-23 16:27 | PRG ---
DATE OF SERVICE: 01/23/2020 SUBJECTIVE: The patient is seen and examined at the bedside. She is doing significantly better. She had 2 units of blood transfused. OBJECTIVE: VITAL SIGNS: Blood pressure is 153/91, pulse is 76, respiratory rate is 18, temperature is 98.2, O2 saturation is 99% on room air. HEENT: Her head is atraumatic and normocephalic. Eyes are PERRLA. Sclerae are nonicteric. Conjunctivae are palish. Oral mucosa is moist. NECK: Supple. LUNGS: Clear. HEART: S1, S2 normal. ABDOMEN: Soft. Nontender. EXTREMITIES: No clubbing, cyanosis, or edema. NEUROLOGICAL: Examination is intact. LABORATORY DATA: Labs showed hemoglobin after 2 units of packed red blood cells is up to 8.3, hematocrit 26.9. Normal white count, normal platelet count. IMPRESSION: 1. Severe symptomatic anemia secondary to hypermenorrhea. 2. Uterine fibroids, multiple as a cause of her hypermenorrhea. 3. Hypertension. 4. Hyperlipidemia. PLAN: The patient was started on lisinopril yesterday, the dose will be increased to 20 mg since she was supposed to take 20 mg at home, but she did not take anything for quite sometime since she does not have any finances. She was seen by RADIO TOWER TECHNICIAN and they are planning to send her home and have her back to do the surgery, but the patient needs the surgery prior to her discharge since she does not have resources and once she is discharged home, she will most likely not follow up with anybody because she does not have much resources as I mentioned above. We will contact RADIO TOWER TECHNICIAN and let them know about the situation. Job ID: [id number]
[2020-01-23 20:06] LABS: Chlamydia by PCR Not Detected (NotDetected); GC by PCR Not Detected (NotDetected)
--- NOTE | 2020-01-24 11:44 | DIS ---
DATE OF ADMISSION: 01/22/2020 DATE OF DISCHARGE: 01/23/2020 FINAL DIAGNOSES AT THE TIME OF DISCHARGE: 1. Heavy menstrual bleeding secondary to fibroids. 2. Symptomatic anemia from heavy menstrual bleeding. 3. Hypertension. 4. Hyperlipidemia. CONSULTANTS: STOCK SHEETS CLEANER INSPECTOR; Kemi Lowe MD and Cesar Levy MD HOSPITAL COURSE: The patient is a 44-year-old female, who presented to the emergency room with a symptomatic anemia. She felt tired all the time and she was short of breath on exertion while in the emergency room, evaluated. She was found to have hemoglobin level of 6.9 and ultrasound was done on her abdomen which showed multiple fibroids in her uterus. This was presumed cause of her heavy menstrual bleedings, which was going on for many years according to her. Also, she had a vaginal examination done with swab which was negative for Trichomonas, Gardnerella, and Soledad. The patient received 2 units of packed red blood cells, her hemoglobin improved to the level of 8.3. She started feeling better. She was also seen by TURRET LATHE SET UP OPERATOR team, who recommended to use tranexamic acid and medroxyprogesterone in form of Provera. She was started on both of them. Also, she was started on 10 mg of Zestril since her blood pressure was running high and she was not taking her medications for quite some time secondary to lack of finances. She is doing significantly better now. Her blood pressure is still 153/91, pulse is 76, respirations 18, temperature is 98.2, O2 saturation is 99% on room air. She was seen and examined before she was discharged home in good condition with recommendation to stay on low-salt diet since she is not able to afford Lysteda which is tranexamic acid, which is quite expensive. She will stay on Provera 20 mg twice a day for 10 days and she is going to have prescription also for lisinopril 20 mg once a day and hydrochlorothiazide 25 mg once a day along with iron 325 mg twice a day. FOLLOWUP: She is going to follow up with primary care physician in a week and with TURRET LATHE SET UP OPERATOR in the next week or two to set up time for hysterectomy. TIME SPENT: Time spent on this discharge is less than 30 minutes. Job ID: [id number]
== END 2020-01-23 17:21 | disposition home or self-care (01) ==
LOC: ERS 10:29 → T4-B 16:40
PROVIDERS: ADMIT Internal Medicine; ATTEND Emergency Medicine
DX: D50.0 Iron deficiency anemia secondary to blood loss (chronic) (principal); D25.9 Leiomyoma of uterus, unspecified; N83.201 Unspecified ovarian cyst, right side; I11.0 Hypertensive heart disease with heart failure; I50.9 Heart failure, unspecified; E78.5 Hyperlipidemia, unspecified; F17.210 Nicotine dependence, cigarettes, uncomplicated; J44.9 Chronic obstructive pulmonary disease, unspecified; Z79.899 Other long term (current) drug therapy
CPT/HCPCS: 36415; 36430; 71045; 76856; 80053; 84484; 85025; 85610; 85730; 86850; 86900; 86901; 87480; 87491; 87510; 87591; 87660; 93005; 96365; 96367; 96375; G0378; J1200; J1885; J2765; J3490; P9016

== ENCOUNTER 2020-05-15 07:36 | Observation (INO) | payer OTHER, SELFPAY ==
--- NOTE | 2020-05-15 08:14 | CT ---
EXAM: CT brain without contrast HISTORY: Strokelike symptoms and altered mental status COMPARISON: 04/01/2016 TECHNIQUE: Multiple contiguous axial images were obtained and a CT of the brain without contrast. FINDINGS: The brain is normal in morphology and attenuation without focal lesions or confluent areas of infarction. There is no evidence of hydrocephalus, intracranial hemorrhage, or extra-axial fluid collection. The calvarium and overlying soft tissues are unremarkable. The visualized paranasal sinuses and masto id air cells are well aerated. IMPRESSION: No evidence of acute intracranial abnormality
--- NOTE | 2020-05-15 08:37 | RAD ---
EXAM: Single view of the chest HISTORY: Right arm tingling and weakness for a few days; chest pain COMPARISON: 01/22/2020 FINDINGS: Single view of the chest shows a normal sized cardiomediastinal silhouette. There is no domonique dence of consolidation, mass, or pleural effusion. Degenerative changes are seen in the spine. IMPRESSION: No evidence of acute cardiopulmonary disease
[2020-05-15 08:42] LABS: #Basophils 0.1 thou/uL (0.0-0.2); #Eosinphils 0.6 thou/uL (0.0-0.7); #Lymphocytes 1.2 thou/uL (1.20-3.40); #Monocytes 0.5 thou/uL (0.11-0.59); #Neutrophils 6.9 thou/uL (1.40-6.50); %Eosinophils 6.9 % (0.0-10.0); %Lymphocytes 12.5 % (21.0-51.0); %Monocytes 5.7 % (0.0-10.0); Hemoglobin 6.2 g/dL (12.0-16.0); Mean Corpuscular HGB CONC 29.6 g/dL (32.0-36.0); Mean Corpuscular Hemoglobin 18.4 pg (27.0-31.0); Mean Corpuscular Volume 62.1 fL (78.0-98.0); Mean Platelet Volume 8.7 fL (7.4-10.4); Platelet Count 116 thou/uL (130-400); RBC Distribution Width 20.2 % (11.5-14.5); Red Blood Cell (RBC) Count 3.39 mill/uL (4.20-5.40); White Blood Cell (WBC) Count 9.4 thou/uL (4.8-10.8)
[2020-05-15 08:52] LABS: ALT (SGPT) 12 U/L (8-55); AST (SGOT) 18 U/L (5-34); Albumin 4.2 g/dL (3.5-5.0); Alkaline Phosphatase 79 U/L (40-110); Anion Gap 12 mmol/L (10-20); BUN (Urea Nitrogen) 9 mg/dL (7.0-18.7); Bilirubin, Total 0.2 mg/dL (0.2-1.2); Calc. Creatinine Clearance 0 mL/min (70-130); Calcium 9.1 mg/dL (7.8-10.44); Carbon Dioxide 22 mmol/L (22-29); Chloride 106 mmol/L (98-107); Estimated GFR-MDRD 82; Globulin 3.6 g/dL (2.4-3.5); Glucose 99 mg/dL (70-105); Potassium 3.4 mmol/L (3.5-5.1); Protein, Total 7.8 g/dL (6.0-8.3); Sodium 137 mmol/L (136-145)
[2020-05-15 09:19] LABS: Band 2 % (5-11); Eosinophils 4 % (0-10); Hypochromia MODERATE=16-30 cells (100X) (0-5/hpf); Lymphocytes 13 % (21-51); MDiff Complete? YES; Microcytosis MARKED = >30 cells (100X) (0-5/hpf); Monocytes 4 % (0-10); Neutrophil 77 % (42-75); Ovalocytes SLIGHT = 2-5 cells (100X) (0-1/hpf); Platelet Morphology Comment Appears Decreased; Polychromasia SLIGHT = 2-3 cells (100X) (0-2/hpf); Reflex for Review?? NO
[2020-05-15 09:29] LABS: PTT 28.8 sec (22.9-36.1); Prothrombin Time 13.3 sec (12.0-14.7)
[2020-05-15] MEDS ORDERED: Sulfameth/Trimethoprim DS 800-160mg TAB ONE (09:30)
[2020-05-15 10:43] LABS: Bacteria/HPF None Seen HPF (None Seen); Bilirubin Negative (Negative); Blood, Urine 2+ (Negative); Clarity Clear (Clear); Glucose, Urine (Dipstick) Normal (Negative); Leukocyte 75 Leu/uL (Negative); Nitrite Negative (Negative); Protein, Urine (Dipstick) 20 mg/dL (Neg-Trace); RBC/HPF Greater than 50 HPF (0-3); Squamous Epithelial 0-3 HPF (0-3); Urobilinogen Normal mg/dL (Less than 2); WBC/HPF 0-3 HPF (0-3)
[2020-05-15 11:11] VITALS: BMI 38.7
[2020-05-15] MEDS ORDERED: Potassium Chloride 20 MEQ TAB PO SCH (13:00)
[2020-05-15] MEDS ORDERED: cefTRIAXone\\ROCEPHIN 1 GM in Sodium Chloride 0.9% 100 ML IVPB SCH (14:00)
--- NOTE | 2020-05-15 16:44 | MRI ---
MRI Brain WO Con: 05/15/2020 12:45 PM CLINICAL HISTORY: History of slurred speech with right-sided numbness. TECHNIQUE: Multiplanar, multisequence images were obtained of the brain. COMPARISON: CT of the brain without contrast dated May 15, 2020 FINDINGS: Extra axial spaces: Normal in size and morphology for the patient's age. Hemorrhage: None. Ventricular system: Normal in size and morphology for the patient's age. Basal cisterns: Normal. Cerebral parenchyma: Normal. Midline shift: None. Cerebellum: Normal. Brainstem: Normal. OTHER: Calvarium: Normal. Vascular system: Normal. Visualized Paranasal sinuses: Mild mucosal thickening of the ethmoid air cells and maxillary sinus. Visualized Orbits: Normal. Visualized upper cervical spine: Normal. Sella and skull base: Normal. IMPRESSION: No acute intracranial abnormality demonstrated. Mild paranasal sinus disease.
--- NOTE | 2020-05-15 17:29 | ULT ---
BILATERAL CAROTID DUPLEX ULTRASOUND: HISTORY: Slurred speech and concern for stroke TECHNIQUE: Grayscale, color-flow and spectral Doppler ultrasound imaging of the extracranial carotid artery syst ems and vertebral arteries was performed bilaterally. FINDINGS: No large amount of echogenic plaque is seen involving the common carotid or internal carotid arteries . The peak systolic velocity in the right ICA measures 58.8 cm/s. The peak systolic velocity in the ri ght CCA measures 112.7 cm/s. The peak systolic velocity in the left ICA measures 52.1 cm/s. The peak systolic velocity in the l eft CCA measures 86.6 cm/s. The right IC/CC ratio is0.52. The left IC/CC ratio is 0.60. Vertebral flow: antegrade, bilaterally. . IMPRESSION: No hemodynamically significant stenosis of Both ICAs.
[2020-05-15] MEDS: Clindamycin/D5W 600 MG in Premix Bag 1 BAG IVPB SCH ×2 (17:30→21:16)
[2020-05-15] MEDS ORDERED: Iron, Sodium Ferric Gluconate 125 MG in Sodium Chloride 0.9% 100 ML IVPB SCH (18:00)
[2020-05-15] MEDS: Iron, Sodium Ferric Gluconate 125 MG in Sodium Chloride 0.9% 100 ML IVPB SCH (18:45)
[2020-05-15 20:13] LABS: Pregnancy Test - Urine (BHCG) Negative (Negative); Pregu Control Background? CLEAR/WHITE (CLR/WHITE); Pregu Control Bar Appear? YES (CONTROL BAR); Specific Gravity 1.007 (1.002-1.036)
[2020-05-15] MEDS: Atorvastatin Calcium 40 MG TAB PO SCH (21:16)
[2020-05-15] MEDS: Ferrous Sulfate 325 MG TAB PO SCH (21:16)
[2020-05-15] MEDS: Acetaminophen 500 MG TAB PO PRN (22:09)
--- NOTE | 2020-05-15 22:10 | HP ---
CHIEF COMPLAINT: Right-sided facial twisting and slurred speech. HISTORY OF PRESENT ILLNESS: The patient is a very pleasant 44-year-old female with history of asthma, osteoarthritis, who comes into the hospital with complaints of right-sided facial twisting and slurred speech. The patient stated that her symptoms started about a couple of days ago. She noticed some pain to her right shoulder also. She states that she was having a difficult time lifting her right shoulder. She denies any fevers or chills, any nausea, vomiting, or diarrhea. Denies any chest pain or chest pressure. She states that she has had strokes in the past; however, I have looked through the chart and did not see any MRI that was done. She only had a CT done a few years ago, which was negative. The patient states that she currently is not taking any medications. PAST MEDICAL HISTORY: She has a history of strokes, according to the patient, asthma. She has a history of osteoarthritis and fibroids. She also has iron deficiency anemia. She has a history of depression. PAST SURGICAL HISTORY: She has had a tubal ligation and a jaw surgery. FAMILY HISTORY: Mother had a pacemaker. Father had heart disease at the age of 60s. Brother had a stroke. Sister has a cardiac stent. SOCIAL HISTORY: She smokes 1-1/2 to 2 packs a day. She drinks wine two glasses a day. Denies any drug use. She is a full code. Lives by herself. MEDICATIONS: She takes only vitamins. Other than that, she takes no medications. ALLERGIES: SHE HAS NO KNOWN DRUG ALLERGIES. REVIEW OF SYSTEMS: All negative except for the ones mentioned above in the HPI. PHYSICAL EXAMINATION: VITAL SIGNS: Are as of the following; temperature 99, 71, 18, 100% on room air, 153/87. GENERAL: She is awake, alert, and oriented x3. Does not appear in distress. CV: S1, S2 present. No murmurs, rubs, gallops. HEENT: She has a significant about a quarter-size fullness around her right chin, lower chin area, which is painful on palpation. There is no erythema noted. There is no drainage noted. She does have right cervical lymphadenopathy that is felt on palpation. Dentition, she does have some poor dentition, but no cavities noted around the site where her pain is located. CV: S1, S2 present. No murmurs, rubs, or gallops. LUNGS: Clear to auscultation. No rhonchi or wheezes noted. ABDOMEN: Soft and nontender. Bowel sounds are present x2. EXTREMITIES: No edema. Pedal pulses are present x2. NEUROVASCULAR: No focal deficits noted. SKIN: No cuts, lesions or bruises noted. LABORATORY RESULTS: WBCs of 9.4, hemoglobin of 6.2, hematocrit of 21.9, MCV of 62.1, platelets of 116. Chemistry: Sodium 137, potassium 3.4, BUN of 9, creatinine 0.90. Iron is 17. Troponin 0.022. IMAGING: She did have a CT brain and a chest x-ray. CT brain indicated no evidence of acute intracranial abnormalities. Chest x-ray did not show any acute abnormalities. Her urine did indicate that it is pink and it has some blood. However, patient also is on her period currently. ASSESSMENT AND PLAN: The patient is a very pleasant 44-year-old female who presents to the hospital with complaints of slurred speech and lower facial droop. 1. Slurred speech, possible stroke versus transient ischemic attack versus just a localized abscess to her right chin area. 2. We will start patient on some clindamycin. I will get an MRI brain to rule out a stroke. Otherwise, she has no significant neurovascular deficits. 3. I will start her also on baby aspirin and statin. 4. We will check a lipid panel in the morning. I do not believe she requires an echocardiogram; however I will go ahead and order it and also we will order a carotid Doppler. 5. Anemia, iron deficiency anemia. MCV is low. We will give her some IV iron. She has not been able to take oral iron, because she does not have money to buy her medications. She is supposed to follow up as an outpatient with TAPE RECORDING MACHINE OPERATOR for fibroid removal. However, due to COVID she is unable to do so. She states that her periods are very heavy. After on some IV iron, we will give her p.o. iron also and also she is receiving 1 unit of PRBCs. 6. Deep venous thrombosis prophylaxis. We will put patient on SCDs. 7. Depression. The patient has been very emotional through the interview. She has been crying. We will get [facility] to evaluate the patient and she denies feeling any suicidal thoughts. Job ID: [id number]
[2020-05-16 04:54] LABS: Cardiac Risk 2.5 (Less than 4.5)
[2020-05-16] MEDS: Clindamycin/D5W 600 MG in Premix Bag 1 BAG IVPB SCH ×3 (06:01→21:29)
[2020-05-16 08:08] LABS: Hemoglobin 7.1 g/dL (12.0-16.0); Mean Corpuscular HGB CONC 30.2 g/dL (32.0-36.0); Mean Corpuscular Hemoglobin 20.1 pg (27.0-31.0); Mean Corpuscular Volume 66.6 fL (78.0-98.0); Mean Platelet Volume 7.3 fL (7.4-10.4); Platelet Count 90 thou/uL (130-400); RBC Distribution Width 24.2 % (11.5-14.5); Red Blood Cell (RBC) Count 3.54 mill/uL (4.20-5.40); White Blood Cell (WBC) Count 7.3 thou/uL (4.8-10.8)
[2020-05-16] MEDS: Ferrous Sulfate 325 MG TAB PO SCH ×2 (08:52→21:28)
[2020-05-16] MEDS: Enoxaparin Sodium 40 MG/0.4 ML SYRINGE SC SCH (08:52)
[2020-05-16] MEDS ORDERED: Aspirin 81 mg Enteric Coated Tablet PO SCH (09:00)
[2020-05-16] MEDS ORDERED: Aspirin 325 mg Enteric Coated Tablet PO SCH (09:00)
[2020-05-16 09:03] LABS: Reticulocyte Count 2.3 % (0.5-1.5)
[2020-05-16] MEDS ORDERED: Clindamycin/D5W 600 mg/50 ml Premix Bag ONE (15:59)
--- NOTE | 2020-05-16 18:45 | PDOC.HOSPP ---
- Subjective Encounter Date: 05/16/20 Encounter Time: 09:45 Subjective: pt up in bed states she feels weak all over. - Objective Vital Signs & Weight: Vital Signs (12 hours) Temp Pulse Pulse Pulse Resp BP BP 05/16/20 15:52 98.5 F 66 20 05/16/20 15:50 98.3 F 66 18 142/97 H 05/16/20 13:14 98.0 F 67 16 136/82 05/16/20 12:51 97.9 F 76 18 137/92 H 05/16/20 12:00 98 F 75 16 05/16/20 09:00 66 134/74 05/16/20 07:57 98 F 76 16 BP Pulse Ox 05/16/20 15:52 142/97 H 98 05/16/20 15:50 98 05/16/20 13:14 98 05/16/20 12:51 98 05/16/20 12:00 134/93 H 98 05/16/20 09:00 05/16/20 07:57 131/77 99 Weight Weight 230 lb 9.6 oz I&O: 05/15/20 05/16/20 05/17/20 06:59 06:59 06:59 Intake Total 1042 778 Output Total 480 Balance 562 778 Result Diagrams: 05/16/20 07:47 05/15/20 08:18 Hospitalist ROS - Review of Systems Cardiovascular: denies: chest pain, palpitations, orthopnea, paroxysmal noc. dyspnea, edema, light headedness, other Gastrointestinal: denies: nausea, vomiting, abdominal pain, diarrhea, constipation, melena, hematochezia, other Genitourinary: denies: dysuria, frequency, incontinence, hematuria, retention, other - Medication Medications: Active Medications Generic Name Dose Route Start Last Admin Trade Name Freq PRN Reason Stop Dose Admin Acetaminophen 500 mg 05/15/20 21:46 05/15/20 22:09 Tylenol PO 500 mg Q6H PRN Administration Mild Pain (1-3) Atorvastatin Calcium 40 mg 05/15/20 21:00 05/15/20 21:16 Lipitor PO 40 mg HS DILEEP Administration Enoxaparin Sodium 40 mg 05/16/20 09:00 05/16/20 08:52 Lovenox SC 40 mg 0900 DILEEP Administration Ferrous Sulfate 325 mg 05/15/20 21:00 05/16/20 08:52 Feosol PO 325 mg BID DILEEP Administration Clindamycin Phosphate/Dextrose 50 mls @ 100 mls/hr 05/15/20 14:00 05/16/20 16 :00 600 mg/ Device IVPB 50 mls Q8HR DILEEP Administration Ferric Sodium Gluconate 110 mls @ 110 mls/hr 05/15/20 18:00 05/15/20 18:45 Complex 125 mg/ Sodium IVPB 05/17/20 18:59 110 mls Chloride 1800 DILEEP Administration Sodium Chloride 10 ml 05/15/20 12:46 05/16/20 08:53 Flush - Normal Saline IVF 10 ml PRN PRN Administration Saline Flush - Exam ENT - other findings: right lower chin area pimple decreased in size Neck: negative: supple, symmetric, no JVD, no thyromegaly, no lymphadenopathy, no carotid bruit, JVD Heart: negative: RRR, no murmur, no gallops, no rubs, normal peripheral pulses, irregular, diminshed peripheral pulses, murmur present, II/IV, III/IV Respiratory: negative: CTAB, no wheezes, no rales, no ronchi, normal chest expansion, no tachypnea, normal percussion, rales, rhonchi, tachypneic, wheezes Gastrointestinal: negative: soft, non-tender, non-distended, normal bowel sounds , no palpable masses, no hepatomegaly, no splenomegaly, no bruit, no guarding, no rigidity, tender to palpation, distended, diminished bowl sounds, voluntary guarding Hosp A/P (1) Slurred speech Code(s): R47.81 - SLURRED SPEECH Status: Acute (2) [place] Code(s): L70.0 - ACNE VULGARIS Status: Acute (3) Symptomatic anemia Code(s): D64.9 - ANEMIA, UNSPECIFIED Status: Acute (4) HTN (hypertension) Code(s): I10 - ESSENTIAL (PRIMARY) HYPERTENSION Status: Chronic - Plan pt got one unit of blood. she still feels week. will check retic count. echo pending. mri brain negative. wanted to send her home but she has no cell phone i can get to call her for echo results. Also she still has been feeling weak. will discharge her early am. s/p 2units of blood.
[2020-05-16] MEDS: Iron, Sodium Ferric Gluconate 125 MG in Sodium Chloride 0.9% 100 ML IVPB SCH (18:46)
[2020-05-16 20:16] LABS: Thyroid Stimulating Hormone 0.3045 uIU/mL (0.35-4.94)
[2020-05-16] MEDS: Acetaminophen 500 MG TAB PO PRN (21:28)
[2020-05-16] MEDS: Atorvastatin Calcium 40 MG TAB PO SCH (21:29)
[2020-05-17 05:45] LABS: #Basophils 0.1 thou/uL (0.0-0.2); #Eosinphils 0.6 thou/uL (0.0-0.7); #Lymphocytes 1.5 thou/uL (1.20-3.40); #Monocytes 0.6 thou/uL (0.11-0.59); #Neutrophils 5.9 thou/uL (1.40-6.50); %Basophils 1.2 % (0.0-1.0); %Eosinophils 7.1 % (0.0-10.0); %Lymphocytes 16.9 % (21.0-51.0); %Monocytes 6.4 % (0.0-10.0); %Neutrophils 68.4 % (42.0-75.0); Hemoglobin 8.4 g/dL (12.0-16.0); Mean Corpuscular HGB CONC 29.8 g/dL (32.0-36.0); Mean Corpuscular Hemoglobin 20.6 pg (27.0-31.0); Mean Platelet Volume 12.5 fL (7.4-10.4); Platelet Count 125 thou/uL (130-400); RBC Distribution Width 25.3 % (11.5-14.5); Red Blood Cell (RBC) Count 4.05 mill/uL (4.20-5.40); White Blood Cell (WBC) Count 8.6 thou/uL (4.8-10.8)
[2020-05-17] MEDS: Clindamycin/D5W 600 MG in Premix Bag 1 BAG IVPB SCH (06:12)
[2020-05-17 08:50] VITALS: BP 138/87; TEMP 98.3
[2020-05-17] MEDS ORDERED: Prenatal Vitamin 1 TAB PO SCH (09:00)
[2020-05-17] MEDS ORDERED: Iron, Sodium Ferric Gluconate 125 MG in Sodium Chloride 0.9% 100 ML IVPB SCH (09:15)
[2020-05-17] MEDS: Enoxaparin Sodium 40 MG/0.4 ML SYRINGE SC SCH (09:37)
[2020-05-17] MEDS: Ferrous Sulfate 325 MG TAB PO SCH (09:46)
--- NOTE | 2020-05-18 02:48 | DIS ---
DATE OF ADMISSION: 05/15/2020 DATE OF DISCHARGE: 05/17/2020 DISCHARGE DIAGNOSES: As of the followin. Slurred speech, resolved, possible transient ischemic attack, however, unlikely. 2. Infected comedogen on the right lower chin area. 3. Obesity. 4. Depression. 5. Iron deficiency anemia. HOSPITAL COURSE: The patient is a 44-year-old female who initially presented to the hospital for possible twisting of right side of her face and slurred speech. She underwent a CT brain, which was negative and a MRI brain, which was negative. Carotid Dopplers were negative. She also underwent echocardiogram, which indicated EF of 65%, initially was negative. The patient was found to have a significant comedogen around her right lower chin area. She was initially put on IV clindamycin, was switched to oral clindamycin. Unable to incision and drain the area since it was very hard. I have asked the patient to apply warm compress and continue the antibiotics and monitor it. If anything changes or gets worse, she needs to come into the ER. She also received 3 doses of IV iron and oral iron. She was transfused about 2 units of PRBCs. She has been asked to follow up with her primary care and also [facility] as an outpatient. I have refilled the patient's medications and have provided her with medications since she cannot afford them. MEDICATIONS: 1. Clindamycin 200 mg q.6 hours. 2. Colace 100 mg daily p.r.n. 3. Iron 325 twice daily. 4. vitamin. PHYSICAL EXAMINATION: VITAL SIGNS: On discharge, temperature 98.3, 69, 18, 98% on room air, 138/87. GENERAL: She is awake, alert, and oriented x3. Does not appear in distress. CV: S1, S2 present. No murmurs, rubs, or gallops. ABDOMEN: Soft and nontender. Bowel sounds are present x2. FOLLOWUP: She will be discharged home to follow up with her primary. She needs to follow up with [facility] [facility] for her fibroids. Job ID: [id number]
--- NOTE | 2020-05-20 12:29 | EKG ---
Test Reason : Blood Pressure : / mmHG Vent. Rate : 085 BPM Atrial Rate : 085 BPM P-R Int : 170 ms QRS Dur : 082 ms QT Int : 354 ms P-R-T Axes : -02 012 021 degrees QTc Int : 421 ms Normal sinus rhythm Normal ECG Confirmed by KIERA MACARIO DO ([id number]), science editor ERIC GILMORE ([id number] on 05/20/2020 12:28:55 PM Referred By: Confirmed By:KIERA MACARIO DO
== END 2020-05-17 11:31 | disposition home or self-care (01) ==
LOC: ERS 07:36 → 2SE 10:46
PROVIDERS: ADMIT Internal Medicine; ATTEND Internal Medicine
DX: R47.81 Slurred speech (principal); F17.210 Nicotine dependence, cigarettes, uncomplicated; D50.9 Iron deficiency anemia, unspecified; F32.9 Major depressive disorder, single episode, unspecified; L70.0 Acne vulgaris; E66.9 Obesity, unspecified; Z68.39 Body mass index [BMI] 39.0-39.9, adult
CPT/HCPCS: 36415; 36430; 70450; 70551; 71045; 80053; 80061; 81003; 81015; 81025; 82607; 82728; 83540; 84439; 84443; 84484; 85025; 85027; 85046; 85610; 85730; 86850; 86900; 86901; 93005; 93306; 93880; 96365; 96366; 96367; 96372; 96376; G0378; J1650; J2916; J3490; P9016

== ENCOUNTER 2020-06-07 21:31 | Emergency (ER) | payer SELFPAY ==
[2020-06-07] MEDS ORDERED: hydrALAZINE 20 MG/ML VIAL ONE (21:55)
--- NOTE | 2020-06-07 22:15 | CT ---
CT Brain WO Con: 06/07/2020 12:00 AM CLINICAL HISTORY: Hypertension and dizziness. IMAGING TECHNIQUE: Multiple CT images were obtained of the brain without IV contrast. COMPARISON: None. FINDINGS: CT the brain dated May 15, 2020 BRAIN: Evidence of acute infarct: None. Evidence of chronic ischemic change:None. Evidence of intracranial hemorrhage: None. Evidence of midline shift: Third ventricle and septum pellucidum are midline. Ventricles: Normal. No hydrocephalus. SKULL: Intact. VISUALIZED PARANASAL SINUSES: Mild mucosal thickening within the ethmoid air cells. MASTOID AIR CELLS: Clear. EXTRACRANIAL SOFT TISSUES: Normal. IMPRESSION: No acute intracranial abnormality.
--- NOTE | 2020-06-07 22:25 | RAD ---
Chest AP view INDICATION: Chest pain COMPARISON: May 15, 2020 FINDINGS: Lungs: The lungs are clear Cardiac silhouette: The cardiomediastinal silhouette appears within normal limits. Pulmonary vasculature: Normal Pleural spaces: No pleural effusion or pneumothorax is demonstrated. Upper abdomen: No abnormality seen. Osseous structures: No acute osseous abnormality. Additional findings: None. IMPRESSION: No acute cardiopulmonary abnormality.
[2020-06-07 22:28] LABS: ALT (SGPT) 13 U/L (8-55); AST (SGOT) 20 U/L (5-34); Albumin 4.4 g/dL (3.5-5.0); Alkaline Phosphatase 63 U/L (40-110); Anion Gap 10 mmol/L (10-20); BUN (Urea Nitrogen) 10 mg/dL (7.0-18.7); Bilirubin, Total 0.2 mg/dL (0.2-1.2); Calc. Creatinine Clearance 0 mL/min (70-130); Calcium 9.4 mg/dL (7.8-10.44); Carbon Dioxide 25 mmol/L (22-29); Chloride 109 mmol/L (98-107); Estimated GFR-MDRD Greater than 90; Globulin 3.4 g/dL (2.4-3.5); Glucose 91 mg/dL (70-105); Potassium 3.9 mmol/L (3.5-5.1); Protein, Total 7.8 g/dL (6.0-8.3); Sodium 140 mmol/L (136-145)
[2020-06-07 22:46] LABS: #Basophils 0.1 thou/uL (0.0-0.2); #Eosinphils 0.5 thou/uL (0.0-0.7); #Lymphocytes 1.3 thou/uL (1.20-3.40); #Monocytes 0.3 thou/uL (0.11-0.59); #Neutrophils 4.5 thou/uL (1.40-6.50); %Basophils 1.4 % (0.0-1.0); %Eosinophils 6.9 % (0.0-10.0); %Lymphocytes 19.7 % (21.0-51.0); %Monocytes 4.7 % (0.0-10.0); %Neutrophils 67.3 % (42.0-75.0); Anisocytosis MODERATE=16-30 cells (100X) (0-5/hpf); Hemoglobin 10.7 g/dL (12.0-16.0); MDiff Complete? YES; Mean Corpuscular HGB CONC 31.5 g/dL (32.0-36.0); Mean Corpuscular Volume 76.3 fL (78.0-98.0); Mean Platelet Volume 7.7 fL (7.4-10.4); Platelet Count 269 thou/uL (130-400); Platelet Morphology Comment Appears Adequate; RBC Distribution Width 28.6 % (11.5-14.5); Red Blood Cell (RBC) Count 4.45 mill/uL (4.20-5.40); White Blood Cell (WBC) Count 6.8 thou/uL (4.8-10.8)
== END 2020-06-07 22:59 | disposition home or self-care (01) ==
LOC: ERS 21:31
DX: I10 Essential (primary) hypertension (principal); J44.9 Chronic obstructive pulmonary disease, unspecified; F32.9 Major depressive disorder, single episode, unspecified; F17.210 Nicotine dependence, cigarettes, uncomplicated
CPT/HCPCS: 70450; 71045; 80053; 84484; 85025; 93005; 96374; J0360

== ENCOUNTER 2021-02-28 15:02 | Emergency (ER) | payer OTHER, SELFPAY ==
[2021-02-28] MEDS ORDERED: cefTRIAXone\\ROCEPHIN 1 GM VIAL ONE (17:12)
[2021-02-28] MEDS ORDERED: HYDROcodone/Acetaminophen 5/325 mg Tablet ONE (17:59)
== END 2021-02-28 18:06 | disposition home or self-care (01) ==
LOC: ERS 15:02
DX: L02.211 Cutaneous abscess of abdominal wall (principal); D50.0 Iron deficiency anemia secondary to blood loss (chronic); I11.0 Hypertensive heart disease with heart failure; I50.9 Heart failure, unspecified; J44.9 Chronic obstructive pulmonary disease, unspecified; Z86.73 Personal history of transient ischemic attack (TIA), and cerebral infarction without residual deficits; F17.210 Nicotine dependence, cigarettes, uncomplicated
CPT/HCPCS: 96372; 99283; J0696

== ENCOUNTER 2022-04-15 05:22 | Emergency (ER) | payer OTHER, SELFPAY ==
[2022-04-15 06:29] LABS: #Basophils 0.1 thou/uL (0.0-0.2); #Eosinphils 0.4 thou/uL (0.0-0.7); #Lymphocytes 1.3 thou/uL (1.20-3.40); #Monocytes 0.3 thou/uL (0.11-0.59); #Neutrophils 3.6 thou/uL (1.40-6.50); %Basophils 1.1 % (0.0-1.0); %Eosinophils 7.5 % (0.0-10.0); %Neutrophils 63.4 % (42.0-75.0); Mean Corpuscular HGB CONC 32.2 g/dL (32.0-36.0); Mean Corpuscular Hemoglobin 26.7 pg (27.0-31.0); Mean Corpuscular Volume 82.9 fL (78.0-98.0); Platelet Count 226 thou/uL (130-400); RBC Distribution Width 16.4 % (11.5-14.5); Red Blood Cell (RBC) Count 4.11 mill/uL (4.20-5.40); White Blood Cell (WBC) Count 5.7 thou/uL (4.8-10.8)
[2022-04-15 06:31] LABS: Bilirubin Negative (Negative); Blood, Urine Large (Negative); Glucose, Urine (Dipstick) Negative (Negative); Ketone, Urine Negative (Negative); Leukocyte Trace (Negative); Nitrite Negative (Negative); Protein, Urine (Dipstick) 30 mg/dL (Neg-Trace); Specific Gravity, Urine 1.025 (1.005-1.030); Urobilinogen 0.2 mg/dL (Less than 2)
[2022-04-15 06:32] LABS: Clarity Cloudy (Clear); RBC/HPF Greater than 50 HPF (0-3); WBC/HPF 0-3 HPF (0-3)
[2022-04-15 06:38] LABS: Prothrombin Time 13.7 sec (12.0-14.7)
[2022-04-15 06:39] LABS: PTT 32.3 sec (22.9-36.1)
[2022-04-15 06:42] LABS: BHCG - Serum Negative (NEGATIVE); Pregs Control Background? CLEAR/WHITE (CLR/WHITE); Pregs Control Bar Appear? YES (CONTROL BAR)
[2022-04-15] MEDS ORDERED: Acetaminophen 500 MG TAB ONE (06:53)
[2022-04-15 06:54] LABS: ALT (SGPT) 10 U/L (8-55); AST (SGOT) 18 U/L (5-34); Albumin 4.3 g/dL (3.5-5.0); Alkaline Phosphatase 72 U/L (40-110); Anion Gap 14 mmol/L (10-20); BUN (Urea Nitrogen) 11 mg/dL (7.0-18.7); Bilirubin, Total 0.2 mg/dL (0.2-1.2); Calc. Creatinine Clearance 0 mL/min (70-130); Calcium 9.1 mg/dL (7.8-10.44); Carbon Dioxide 23 mmol/L (22-29); Chloride 106 mmol/L (98-107); Globulin 3.7 g/dL (2.4-3.5); Glucose 95 mg/dL (70-105); Iron 49 ug/dL (50-170); Potassium 3.9 mmol/L (3.5-5.1); Sodium 139 mmol/L (136-145)
[2022-04-15 09:40] LABS: Ferritin 25.89 ng/mL (10-291)
== END 2022-04-15 08:01 | disposition home or self-care (01) ==
LOC: ERS 05:22
DX: N93.9 Abnormal uterine and vaginal bleeding, unspecified (principal); I10 Essential (primary) hypertension; J44.9 Chronic obstructive pulmonary disease, unspecified; F17.210 Nicotine dependence, cigarettes, uncomplicated; Z79.899 Other long term (current) drug therapy
CPT/HCPCS: 36415; 76856; 80053; 81003; 81015; 82728; 83540; 84703; 85025; 85610; 85730; 93976

== ENCOUNTER 2022-05-02 | Emergency (ER) | payer SELFPAY ==
[2022-05-02] MEDS ORDERED: Acetaminophen 500 MG TAB ONE (03:50)
[2022-05-02] MEDS ORDERED: Ketorolac Tromethamine 30 MG/ML VIAL ONE (03:50)
== END 2022-05-02 04:18 | disposition home or self-care (01) ==
LOC: ERS
DX: G89.29 Other chronic pain (principal); M17.12 Unilateral primary osteoarthritis, left knee; M25.571 Pain in right ankle and joints of right foot; I11.0 Hypertensive heart disease with heart failure; I50.9 Heart failure, unspecified; D50.9 Iron deficiency anemia, unspecified; J44.9 Chronic obstructive pulmonary disease, unspecified; Z86.73 Personal history of transient ischemic attack (TIA), and cerebral infarction without residual deficits; F17.210 Nicotine dependence, cigarettes, uncomplicated
CPT/HCPCS: 96372; J1885

== ENCOUNTER 2023-03-10 03:02 | Observation (INO) | payer SELFPAY ==
[2023-03-10 04:37] LABS: Hemoglobin 6.8 g/dL (12.0-16.0); Mean Corpuscular HGB CONC 32.3 g/dL (32.0-36.0); Mean Corpuscular Volume 68.2 fl (78.0-98.0); Mean Platelet Volume 11.9 fL (7.4-10.4); Platelet Count 347 10x3/uL (130-400); RBC Distribution Width 18.1 % (11.5-14.5); Red Blood Cell (RBC) Count 3.09 mill/uL (4.20-5.40); White Blood Cell (WBC) Count 7.3 10x3/uL (4.8-10.8)
[2023-03-10 04:45] LABS: ALT (SGPT) 22 U/L (8-55); AST (SGOT) 28 U/L (5-34); Albumin 4.2 g/dL (3.5-5.0); Alkaline Phosphatase 74 U/L (40-110); Anion Gap 16 mmol/L (10-20); BUN (Urea Nitrogen) 11 mg/dL (7.0-18.7); Bilirubin, Total 0.2 mg/dL (0.2-1.2); Calc. Creatinine Clearance 0 mL/min (70-130); Calcium 9.5 mg/dL (7.8-10.44); Carbon Dioxide 20 mmol/L (22-29); Chloride 105 mmol/L (98-107); Estimated GFR 78; Globulin 3.9 g/dL (2.4-3.5); Glucose 105 mg/dL (70-105); Lipase 22 U/L (8-78); Potassium 3.5 mmol/L (3.5-5.1); Protein, Total 8.1 g/dL (6.0-8.3); Sodium 137 mmol/L (136-145)
[2023-03-10 05:04] LABS: #Basophils 0.1 thou/uL (0.0-0.2); #Eosinphils 0.3 thou/uL (0.0-0.7); #Lymphocytes 0.9 thou/uL (1.20-3.40); #Monocytes 0.3 thou/uL (0.11-0.59); #Neutrophils 5.6 thou/uL (1.40-6.50); %Basophils 1.8 % (0.0-1.0); %Eosinophils 4.4 % (0.0-10.0); %Monocytes 4.7 % (0.0-10.0); %Neutrophils 77.1 % (42.0-75.0); Anisocytosis SLIGHT = 6-15 cells (100X) (0-5/hpf); Hypochromia SLIGHT = 6-15 cells (100X) (0-5/hpf); Large Platelets SLIGHT; MDiff Complete? YES; Microcytosis SLIGHT = 6-15 cells (100X) (0-5/hpf); Platelet Morphology Comment Appears Adequate
[2023-03-10] MEDS ORDERED: Senokot S 8.6-50 MG TAB PO PRN (06:03)
[2023-03-10] MEDS ORDERED: Acetaminophen 325 MG TAB PO PRN (06:03)
[2023-03-10] MEDS ORDERED: Ondansetron ODT 4 MG TAB PO PRN (06:03)
[2023-03-10] MEDS ORDERED: Nitroglycerin 0.4 MG TAB (25 Tab Bottle) SL PRN (06:03)
[2023-03-10 07:42] VITALS: BMI 38.0
[2023-03-10] MEDS: Lisinopril/Hydrochlorothiazide 20/25 mg Tablet PO SCH (09:04)
[2023-03-10] MEDS: Prenatal Vitamin 1 TAB PO SCH (09:04)
[2023-03-10] MEDS: Aspirin Chewable 81 MG TAB PO SCH (09:04)
[2023-03-10] MEDS: Famotidine 20 MG TAB PO SCH ×2 (09:05→20:59)
[2023-03-10] MEDS: PARoxetine 20 MG TAB PO SCH (09:05)
[2023-03-10 09:53] LABS: Troponin I Less than 0.010 ng/mL (< 0.028)
[2023-03-10 11:07] LABS: Troponin I Less than 0.010 ng/mL (< 0.028)
[2023-03-10 11:45] LABS: Hemoglobin 7.6 g/dL (12.0-16.0)
[2023-03-10] MEDS: Iron, Sodium Ferric Gluconate 250 MG in Sodium Chloride 0.9% 250 ML 250 ML IVPB SCH ×2 (12:53→20:59)
[2023-03-11 04:49] LABS: #Basophils 0.1 thou/uL (0.0-0.2); #Eosinphils 0.3 thou/uL (0.0-0.7); #Lymphocytes 1.3 thou/uL (1.20-3.40); #Monocytes 1.3 thou/uL (0.11-0.59); #Neutrophils 16.1 thou/uL (1.40-6.50); %Basophils 0.6 % (0.0-1.0); %Eosinophils 1.4 % (0.0-10.0); %Lymphocytes 6.6 % (21.0-51.0); %Monocytes 6.8 % (0.0-10.0); %Neutrophils 84.7 % (42.0-75.0); Hemoglobin 9.6 g/dL (12.0-16.0); Mean Corpuscular HGB CONC 31.5 g/dL (32.0-36.0); Mean Corpuscular Hemoglobin 23.2 pg (27.0-31.0); Mean Corpuscular Volume 73.6 fl (78.0-98.0); Platelet Count 431 10x3/uL (130-400); RBC Distribution Width 21.3 % (11.5-14.5); Red Blood Cell (RBC) Count 4.13 mill/uL (4.20-5.40)
[2023-03-11 05:06] LABS: Anion Gap 13 mmol/L (10-20); BUN (Urea Nitrogen) 19 mg/dL (7.0-18.7); Calc. Creatinine Clearance 92 mL/min (70-130); Calcium 9.5 mg/dL (7.8-10.44); Carbon Dioxide 22 mmol/L (22-29); Chloride 107 mmol/L (98-107); Estimated GFR 57; Glucose 102 mg/dL (70-105); Potassium 4.1 mmol/L (3.5-5.1); Sodium 138 mmol/L (136-145)
[2023-03-11 08:05] VITALS: BP 118/67; TEMP 98.7
[2023-03-11] MEDS: PARoxetine 20 MG TAB PO SCH (08:25)
[2023-03-11] MEDS: Prenatal Vitamin 1 TAB PO SCH (08:25)
[2023-03-11] MEDS: Famotidine 20 MG TAB PO SCH (08:25)
[2023-03-11] MEDS: Aspirin Chewable 81 MG TAB PO SCH (08:25)
[2023-03-11] MEDS: Lisinopril/Hydrochlorothiazide 20/25 mg Tablet PO SCH (08:30)
== END 2023-03-11 10:31 | disposition home or self-care (01) ==
LOC: ERS 03:02 → 2NO 07:40
PROVIDERS: ADMIT Emergency Medicine; ATTEND Emergency Medicine
DX: D50.0 Iron deficiency anemia secondary to blood loss (chronic) (principal); N92.0 Excessive and frequent menstruation with regular cycle; D25.9 Leiomyoma of uterus, unspecified; I11.0 Hypertensive heart disease with heart failure; I50.9 Heart failure, unspecified; J44.9 Chronic obstructive pulmonary disease, unspecified; F17.210 Nicotine dependence, cigarettes, uncomplicated; Z79.899 Other long term (current) drug therapy
CPT/HCPCS: 36415; 36430; 71045; 80048; 80053; 83690; 83735; 84484; 85025; 86850; 86900; 86901; 86922; 93005; 96365; 96366; G0378; J2916; J7050; P9016; Q0162

== ENCOUNTER 2023-06-12 15:15 | Emergency (ER) | payer SELFPAY ==
[2023-06-12] MEDS ORDERED: Aspirin Chewable 81 MG TAB ONE (16:04)
[2023-06-12] MEDS ORDERED: Nitroglycerin 0.4 MG TAB 1 EACH ONE (16:04)
[2023-06-12 16:40] LABS: #Eosinphils 0.5 thou/uL (0.0-0.7); #Monocytes 0.5 thou/uL (0.11-0.59); #Neutrophils 3.2 thou/uL (1.40-6.50); %Basophils 0.7 % (0.0-1.0); %Lymphocytes 25.3 % (21.0-51.0); %Neutrophils 56.8 % (42.0-75.0); Hemoglobin 11.4 g/dL (12.0-16.0); Mean Corpuscular HGB CONC 32.7 g/dL (32.0-36.0); Mean Corpuscular Hemoglobin 27.2 pg (27.0-31.0); Mean Corpuscular Volume 83.3 fl (78.0-98.0); Mean Platelet Volume 10.3 fL (7.4-10.4); Platelet Count 245 10x3/uL (130-400); Red Blood Cell (RBC) Count 4.19 mill/uL (4.20-5.40); White Blood Cell (WBC) Count 5.7 10x3/uL (4.8-10.8)
[2023-06-12 17:13] LABS: ALT (SGPT) 18 U/L (8-55); AST (SGOT) 20 U/L (5-34); Albumin 4.5 g/dL (3.5-5.0); Alkaline Phosphatase 85 U/L (40-110); Anion Gap 15 mmol/L (10-20); BUN (Urea Nitrogen) 12 mg/dL (7.0-18.7); Bilirubin, Total 0.3 mg/dL (0.2-1.2); Calc. Creatinine Clearance 0 mL/min (70-130); Calcium 10.1 mg/dL (7.8-10.44); Carbon Dioxide 22 mmol/L (22-29); Chloride 106 mmol/L (98-107); Estimated GFR 86; Globulin 3.4 g/dL (2.4-3.5); Glucose 97 mg/dL (70-105); Lipase 16 U/L (8-78); Potassium 3.6 mmol/L (3.5-5.1); Protein, Total 7.9 g/dL (6.0-8.3); Sodium 139 mmol/L (136-145)
== END 2023-06-12 21:17 | disposition home or self-care (01) ==
LOC: ERS 15:15
DX: R07.9 Chest pain, unspecified (principal); I11.0 Hypertensive heart disease with heart failure; I50.9 Heart failure, unspecified; F17.210 Nicotine dependence, cigarettes, uncomplicated; Z79.899 Other long term (current) drug therapy
CPT/HCPCS: 36415; 71045; 80053; 83690; 83880; 84484; 85025; 85379; 93005

== ENCOUNTER 2023-06-14 01:57 | Emergency (ER) | payer SELFPAY ==
[2023-06-14 02:32] LABS: #Basophils 0.1 thou/uL (0.0-0.2); #Eosinphils 0.5 thou/uL (0.0-0.7); #Monocytes 0.5 thou/uL (0.11-0.59); #Neutrophils 3.6 thou/uL (1.40-6.50); %Basophils 0.8 % (0.0-1.0); %Eosinophils 7.9 % (0.0-10.0); %Lymphocytes 26.2 % (21.0-51.0); %Monocytes 8.3 % (0.0-10.0); %Neutrophils 56.5 % (42.0-75.0); Hemoglobin 11.2 g/dL (12.0-16.0); Mean Corpuscular HGB CONC 32.7 g/dL (32.0-36.0); Mean Corpuscular Hemoglobin 27.2 pg (27.0-31.0); Platelet Count 247 10x3/uL (130-400); RBC Distribution Width 14.4 % (11.5-14.5); Red Blood Cell (RBC) Count 4.12 mill/uL (4.20-5.40); White Blood Cell (WBC) Count 6.3 10x3/uL (4.8-10.8)
[2023-06-14 02:54] LABS: ALT (SGPT) 16 U/L (8-55); AST (SGOT) 22 U/L (5-34); Albumin 4.4 g/dL (3.5-5.0); Alkaline Phosphatase 79 U/L (40-110); Anion Gap 16 mmol/L (10-20); BUN (Urea Nitrogen) 18 mg/dL (7.0-18.7); Bilirubin, Total 0.2 mg/dL (0.2-1.2); Calc. Creatinine Clearance 0 mL/min (70-130); Carbon Dioxide 20 mmol/L (22-29); Chloride 106 mmol/L (98-107); Estimated GFR 77; Globulin 3.3 g/dL (2.4-3.5); Glucose 110 mg/dL (70-105); Potassium 3.6 mmol/L (3.5-5.1); Protein, Total 7.7 g/dL (6.0-8.3); Sodium 138 mmol/L (136-145)
== END 2023-06-14 03:45 | disposition home or self-care (01) ==
LOC: ERS 01:57
DX: R07.9 Chest pain, unspecified (principal); I10 Essential (primary) hypertension; F17.210 Nicotine dependence, cigarettes, uncomplicated
CPT/HCPCS: 36415; 71045; 80053; 84484; 85025; 93005

== ENCOUNTER 2023-07-30 18:02 | Inpatient (IN) | payer SELFPAY ==
[2023-07-30 18:51] LABS: #Basophils 0.1 thou/uL (0.0-0.2); #Eosinphils 0.3 thou/uL (0.0-0.7); #Monocytes 0.4 thou/uL (0.11-0.59); #Neutrophils 4.3 thou/uL (1.40-6.50); %Basophils 0.8 % (0.0-1.0); %Eosinophils 4.9 % (0.0-10.0); %Lymphocytes 14.5 % (21.0-51.0); %Monocytes 7.1 % (0.0-10.0); %Neutrophils 72.4 % (42.0-75.0); Hematocrit 31.3 % (36.0-47.0); Hemoglobin 9.7 g/dL (12.0-16.0); Mean Corpuscular Hemoglobin 26.6 pg (27.0-31.0); Mean Platelet Volume 10.4 fL (7.4-10.4); Platelet Count 331 10x3/uL (130-400); RBC Distribution Width 14.7 % (11.5-14.5); Red Blood Cell (RBC) Count 3.64 mill/uL (4.20-5.40)
[2023-07-30 19:19] LABS: Troponin I 0.013 ng/mL (< 0.028)
[2023-07-30 19:21] LABS: Acetaminophen Less than 10 mcg/mL (10.0-30.0); Alcohol Less than 10.0 mg/dL (Less than 10); Lipase 28 U/L (8-78); Magnesium 1.9 mg/dL (1.6-2.6); Salicylate Less than 8.0 mg/dL (15.0-30.0)
[2023-07-30 19:23] LABS: ALT (SGPT) 14 U/L (8-55); AST (SGOT) 19 U/L (5-34); Albumin 4.1 g/dL (3.5-5.0); Alkaline Phosphatase 73 U/L (40-110); Anion Gap 13 mmol/L (10-20); BUN (Urea Nitrogen) 8 mg/dL (7.0-18.7); Bilirubin, Total 0.2 mg/dL (0.2-1.2); CK (CPK) 169 U/L (29-168); Calc. Creatinine Clearance 0 mL/min (70-130); Calcium 9.4 mg/dL (7.8-10.44); Carbon Dioxide 23 mmol/L (22-29); Chloride 105 mmol/L (98-107); Estimated GFR 86; Globulin 3.7 g/dL (2.4-3.5); Glucose 102 mg/dL (70-105); Potassium 3.4 mmol/L (3.5-5.1); Protein, Total 7.8 g/dL (6.0-8.3); Sodium 138 mmol/L (136-145)
[2023-07-30 20:24] LABS: Amphetamine Not Detected (NotDetected); Barbiturates Screen Not Detected (NotDetected); Benzodiazepine Screen Not Detected (NotDetected); Cocaine Metabolite Screen Not Detected (NotDetected); Methadone Not Detected (NotDetected); Methamphetamine Not Detected (NotDetected); Opiate Screen Not Detected (NotDetected); Oxycodone Screen Not Detected (NotDetected); Phencyclidine (PCP) Not Detected (NotDetected); THC/Cannabinoid Screen Not Detected (NotDetected); Tricyclic Screen Not Detected (NotDetected)
[2023-07-30] MEDS ORDERED: Acetaminophen 325 MG TAB PO PRN (22:31)
[2023-07-30] MEDS ORDERED: hydrALAZINE 20 MG/ML VIAL SLOW IVP PRN (22:31)
[2023-07-30] MEDS ORDERED: Ondansetron PF 4 MG/2 ML Vial IVP PRN (22:31)
[2023-07-30] MEDS ORDERED: Ondansetron ODT 4 MG TAB PO PRN (22:31)
[2023-07-30] MEDS ORDERED: NS 0.9% w/ 40 MEQ KCL 1,000 ML IV SCH (22:45)
[2023-07-30 23:02] LABS: Actual Bicarbonate (HCO3v) 21.8 mEq/L (22-28); Base Excess -2.9 mEq/L (-2.0 to +3.0); Chloride (VBG) 106 mmol/L (98-106); Hematocrit-VBG 30 % (36.0-47.0); Hemoglobin (Hb) 10.3 g/dL (11.7-16.0); Potassium (VBG) 3.31 mmol/L (3.70-5.30); pH (venous) 7.383 (7.32-7.43)
[2023-07-31 00:49] VITALS: BMI 37.2
[2023-07-31 04:55] LABS: Bacteria/HPF None Seen HPF (None Seen); Bilirubin Negative (Negative); Blood, Urine Negative (Negative); CAUTI Indications for Culture Alt mental st,lethar; Clarity Clear (Clear); Glucose, Urine (Dipstick) Normal (Negative); Ketone, Urine Negative (Negative); Leukocyte Negative Leu/uL (Negative); Nitrite Negative (Negative); Protein, Urine (Dipstick) Negative (Neg-Trace); RBC/HPF 0-3 HPF (0-3); Specific Gravity, Urine 1.016 (1.002-1.036); Squamous Epithelial None Seen HPF (0-3); Urobilinogen Normal mg/dL (Less than 2); WBC/HPF 0-3 HPF (0-3); pH, Urine 5.5 (5.0-9.0)
[2023-07-31 04:58] LABS: Urine Culture Reflex No No
[2023-07-31 05:59] LABS: #Eosinphils 0.4 thou/uL (0.0-0.7); #Monocytes 0.6 thou/uL (0.11-0.59); #Neutrophils 3.7 thou/uL (1.40-6.50); %Basophils 0.7 % (0.0-1.0); %Eosinophils 7.3 % (0.0-10.0); %Lymphocytes 19.9 % (21.0-51.0); %Monocytes 10.5 % (0.0-10.0); %Neutrophils 61.3 % (42.0-75.0); Hematocrit 30.7 % (36.0-47.0); Hemoglobin 9.4 g/dL (12.0-16.0); Mean Corpuscular HGB CONC 30.6 g/dL (32.0-36.0); Mean Corpuscular Hemoglobin 26.9 pg (27.0-31.0); Mean Platelet Volume 10.7 fL (7.4-10.4); Platelet Count 282 10x3/uL (130-400); RBC Distribution Width 14.9 % (11.5-14.5); Red Blood Cell (RBC) Count 3.49 mill/uL (4.20-5.40)
[2023-07-31 06:25] LABS: Anion Gap 12 mmol/L (10-20); BUN (Urea Nitrogen) 8 mg/dL (7.0-18.7); Calc. Creatinine Clearance 145 mL/min (70-130); Calcium 8.7 mg/dL (7.8-10.44); Carbon Dioxide 21 mmol/L (22-29); Cardiac Risk 4.1 (Less than 4.5); Chloride 108 mmol/L (98-107); Cholesterol 159 mg/dl (< 200 Desired); Estimated GFR 101; Glucose 83 mg/dL (70-105); HDL Cholesterol 39 mg/dL (>60 Neg Risk); LDL Cholesterol, Calculated 105 mg/dL; Potassium 3.5 mmol/L (3.5-5.1); Sodium 137 mmol/L (136-145); Triglycerides 76 mg/dL (Less than 150)
[2023-07-31] MEDS: Ferrous Sulfate 325 MG TAB PO SCH ×3 (08:49→16:25)
[2023-07-31] MEDS: HYDROcodone/Acetaminophen 5/325 mg Tablet PO PRN ×2 (08:50→18:07)
[2023-07-31] MEDS ORDERED: Aspirin 81 mg Enteric Coated Tablet PO SCH (09:00)
[2023-07-31] MEDS ORDERED: PARoxetine 20 MG TAB PO SCH (09:00)
[2023-07-31] MEDS ORDERED: Ipratropium/Albuterol 3 ML NEB NEB PRN (13:28)
[2023-07-31 16:03] VITALS: TEMP 97.5
[2023-07-31 18:47] VITALS: BP 164/88
[2023-07-31] MEDS ORDERED: Atorvastatin Calcium 40 MG TAB PO SCH (21:00)
[2023-08-01] MEDS ORDERED: Lisinopril/Hydrochlorothiazide 20/25 mg Tablet PO SCH (09:00)
== END 2023-07-31 19:02 | disposition home or self-care (01) | DRG 71 ==
LOC: ERS 18:02 → 2SE 22:30
PROVIDERS: ADMIT Student in an Organized Health Care Education/Training Program; ATTEND Internal Medicine
PROC: 4A00X4Z Measurement of Central Nervous Electrical Activity, External Approach (ICD-10-PCS; principal; 2023-07-31)
DX: G93.49 Other encephalopathy (principal); R45.851 Suicidal ideations; D50.9 Iron deficiency anemia, unspecified; I11.0 Hypertensive heart disease with heart failure; I50.9 Heart failure, unspecified; J44.9 Chronic obstructive pulmonary disease, unspecified; R53.1 Weakness; E87.6 Hypokalemia; D25.9 Leiomyoma of uterus, unspecified; F32.A Depression, unspecified; J32.2 Chronic ethmoidal sinusitis; J32.0 Chronic maxillary sinusitis; H40.9 Unspecified glaucoma; F17.210 Nicotine dependence, cigarettes, uncomplicated; Z82.49 Family history of ischemic heart disease and other diseases of the circulatory system; Z80.9 Family history of malignant neoplasm, unspecified; Z86.73 Personal history of transient ischemic attack (TIA), and cerebral infarction without residual deficits; Z79.899 Other long term (current) drug therapy; Z98.51 Tubal ligation status
CPT/HCPCS: 36415; 51701; 70450; 70551; 71045; 80048; 80053; 80061; 80306; 80307; 81001; 82140; 82550; 82805; 83690; 83735; 83880; 84146; 84443; 84484; 85025; 87040; 93005; 95712; 95819; 95957; 96360; 96361; J3480

== ENCOUNTER 2023-10-18 13:20 | Emergency (ER) | payer SELFPAY ==
[2023-10-18] MEDS ORDERED: Ondansetron PF 4 MG/2 ML Vial ONE (14:29)
[2023-10-18 14:59] LABS: #Basophils 0.1 thou/uL (0.0-0.2); #Eosinphils 0.2 thou/uL (0.0-0.7); #Monocytes 0.4 thou/uL (0.11-0.59); #Neutrophils 3.8 thou/uL (1.40-6.50); %Basophils 0.9 % (0.0-1.0); %Eosinophils 4.2 % (0.0-10.0); %Lymphocytes 18.7 % (21.0-51.0); %Monocytes 6.4 % (0.0-10.0); %Neutrophils 69.4 % (42.0-75.0); Hematocrit 29.3 % (36.0-47.0); Hemoglobin 9.3 g/dL (12.0-16.0); Mean Corpuscular HGB CONC 31.7 g/dL (32.0-36.0); Mean Corpuscular Volume 81.8 fl (78.0-98.0); Mean Platelet Volume 10.7 fL (7.4-10.4); Platelet Count 350 10x3/uL (130-400); RBC Distribution Width 14.9 % (11.5-14.5); Red Blood Cell (RBC) Count 3.58 mill/uL (4.20-5.40); White Blood Cell (WBC) Count 5.5 10x3/uL (4.8-10.8)
[2023-10-18 15:07] LABS: BHCG - Serum Negative (NEGATIVE); Pregs Control Background? CLEAR/WHITE (CLR/WHITE); Pregs Control Bar Appear? YES (CONTROL BAR)
[2023-10-18 15:25] LABS: Troponin I 0.017 ng/mL (< 0.028)
[2023-10-18 15:26] LABS: Acetaminophen Less than 10 mcg/mL (10.0-30.0); Alcohol Less than 10.0 mg/dL (Less than 10); Lipase 29 U/L (8-78); Salicylate Less than 8.0 mg/dL (15.0-30.0)
[2023-10-18 15:27] LABS: ALT (SGPT) 8 U/L (8-55); AST (SGOT) 14 U/L (5-34); Albumin 4.6 g/dL (3.5-5.0); Alkaline Phosphatase 79 U/L (40-110); Anion Gap 13 mmol/L (10-20); BUN (Urea Nitrogen) 10 mg/dL (7.0-18.7); Bilirubin, Total 0.3 mg/dL (0.2-1.2); Calc. Creatinine Clearance 0 mL/min (70-130); Calcium 9.5 mg/dL (7.8-10.44); Carbon Dioxide 25 mmol/L (22-29); Chloride 107 mmol/L (98-107); Estimated GFR 86; Globulin 3.3 g/dL (2.4-3.5); Glucose 104 mg/dL (70-105); Potassium 3.6 mmol/L (3.5-5.1); Protein, Total 7.9 g/dL (6.0-8.3); Sodium 141 mmol/L (136-145)
[2023-10-18 15:54] LABS: Bacteria/HPF None Seen HPF (None Seen); Bilirubin Negative (Negative); Blood, Urine Trace (Negative); CAUTI Indications for Culture Alt mental st,lethar; Clarity Clear (Clear); Glucose, Urine (Dipstick) Normal (Negative); Ketone, Urine Negative (Negative); Leukocyte 25 Leu/uL (Negative); Nitrite Negative (Negative); Protein, Urine (Dipstick) 30 mg/dL (Neg-Trace); RBC/HPF 0-3 HPF (0-3); Specific Gravity, Urine 1.033 (1.002-1.036); Squamous Epithelial 0-3 HPF (0-3); Urine Culture Reflex No No; Urobilinogen Normal mg/dL (Less than 2)
[2023-10-18 16:03] LABS: Amphetamine Not Detected (NotDetected); Barbiturates Screen Not Detected (NotDetected); Benzodiazepine Screen Not Detected (NotDetected); Cocaine Metabolite Screen Detected (NotDetected); Methadone Not Detected (NotDetected); Methamphetamine Not Detected (NotDetected); Opiate Screen Not Detected (NotDetected); Oxycodone Screen Not Detected (NotDetected); Phencyclidine (PCP) Not Detected (NotDetected); THC/Cannabinoid Screen Not Detected (NotDetected); Tricyclic Screen Not Detected (NotDetected)
[2023-10-18] MEDS ORDERED: LORazepam 2 MG/ML SYR.(CARPUJECT) ONE (16:37)
== END 2023-10-18 17:21 | disposition home or self-care (01) ==
LOC: ERS 13:20
DX: R41.82 Altered mental status, unspecified (principal); F14.10 Cocaine abuse, uncomplicated; I11.0 Hypertensive heart disease with heart failure; I50.9 Heart failure, unspecified; Z87.891 Personal history of nicotine dependence
CPT/HCPCS: 36415; 51701; 70450; 71045; 80053; 80306; 80307; 81001; 83690; 84484; 84703; 85025; 93005; 96361; 96374; 96375; J2060; J2405

== ENCOUNTER 2023-11-21 18:03 | Emergency (ER) | payer SELFPAY | END 2023-11-21 19:22 | disposition home or self-care (01) | LOC: ERS 18:03 | DX: H57.89 Other specified disorders of eye and adnexa (principal); H53.9 Unspecified visual disturbance; I11.0 Hypertensive heart disease with heart failure; I50.9 Heart failure, unspecified; J44.9 Chronic obstructive pulmonary disease, unspecified; Z87.891 Personal history of nicotine dependence; Z79.899 Other long term (current) drug therapy | CPT/HCPCS: 99283 ==